=== PATIENT | female | born 1935 | race Caucasian/White ===

== ENCOUNTER 2018-08-03 02:08 | Outpatient (CLI) | payer MEDICARE, MEDICAID, SELFPAY ==
[2018-08-03 11:19] LABS: HCT 42.8 % (36.0-46.0); HGB 14.2 g/dL (12.0-15.5)
[2018-08-03 11:36] LABS: Hemoglobin A1C 6.7 % (4.5-6.2)
[2018-08-03 12:02] LABS: ALT 25 U/L (12-78); AST 20 U/L (15-37); Albumin 3.3 g/dL (3.4-5.0); Alkaline Phosphatase 105 U/L (46-116); Anion Gap 9.7 mmol/L (3-11); BUN 18 mg/dL (7-18); Bilirubin, Total 0.5 mg/dL (0.2-1.0); CO2 25.3 mmol/L (21.0-32.0); CREATININE 0.92 mg/dL (0.55-1.02); Calcium 9.2 mg/dL (8.5-10.1); Chloride 103 mmol/L (98-107); Estimated GFR 58.74 (mL/min/1.73m2); Glucose 134 mg/dL (70-100); Sodium 138 mmol/L (136-145); Total Protein 6.2 g/dL (6.4-8.2)
== END 2018-08-03 02:28 ==
PROVIDERS: PCP Family Medicine; Visit Provider Family Medicine
DX: E11.39 Type 2 diabetes mellitus with other diabetic ophthalmic complication (principal); E78.5 Hyperlipidemia, unspecified; D64.9 Anemia, unspecified
CPT/HCPCS: 36415; 80053; 83036; 85014; 85018

== ENCOUNTER 2018-08-09 12:21 | Outpatient (CLI) | payer MEDICARE, MEDICAID, SELFPAY ==
--- NOTE | 2018-08-08 11:10 | DIABASSESS_ITS ---
DESCRIPTION/ASSESSMENT: Mahsa Omalley presents for diabetes self management with the sole purpose to learn about and obtain a Continuous Glucose Monitor. She states she does have hypoglycemia a few times a week and she and her provider feel it would be a safety benefit for her to have one. She wore out Professional CGM in 2011. INTERVENTION: Reviewed our Professional CGM versus the newest Dexcom 6 that would mean she would not have to use her glucometer to check her blood sugars. Discussed benefit/cost of doing both. Mahsa feels she would like to try the latest CGM which means submitting an application to obtain CGM. She is coached through this process and the form is faxed to [employer] 08/09/18 ACTION PLAN:Mahsa will await notification of her costs for the Dexcom allowed by Medicare to determine her choice to obtain a personal CGM. She will return for instructions on its use when it is available to her. Individual DSME 0__ units billed TIME IN: 11:10 OUT: No DM group education series being offered at this time.
== END 2018-08-09 12:41 ==
PROVIDERS: PCP Family Medicine; Visit Provider Dietitian, Registered
DX: E11.9 Type 2 diabetes mellitus without complications (principal); Z79.4 Long term (current) use of insulin

== ENCOUNTER 2018-12-05 14:43 | Outpatient (REF) | payer MEDICARE, MEDICAID, SELFPAY ==
[2018-12-05 20:14] LABS: Abs Immature Grans 0.02 k/cumm (0.0-0.09); Absolute Basophil Count 0.06 k/cumm (0.0-0.2); Absolute Eosinophil Count 0.26 k/cumm (0.0-0.7); Absolute Lymphocyte Count 1.74 k/cumm (1.2-3.4); Absolute Monocyte Count 0.59 k/cumm (0.11-0.7); Absolute Neutrophil Count 4.35 k/cumm (1.2-6.7); Basophils % 0.9; Eosinophils % 3.7; Immature Grans % 0.3; Lymphocytes % 24.8; Mean Corp. HGB Concentration 32.6 g/dL (32.0-36.0); Mean Corpuscular Volume 89.2 fL (80-95); Mean Platelet Volume 11.3 fL (8.0-11.0); Monocytes % 8.4; Neutrophils % 61.9; Platelet Count 222 x1000/uL (130-400); RBC 4.82 m/cumm (4.00-5.20); RBC Distribution Width 14.5 % (11.7-14.6); White Blood Cell Count 7.02 k/cumm (4.4-10.8)
[2018-12-05 20:16] LABS: ALT 21 U/L (12-78); AST 24 U/L (15-37); Albumin 3.4 g/dL (3.4-5.0); Alkaline Phosphatase 127 U/L (46-116); Anion Gap 7.8 mmol/L (3-11); BUN 19 mg/dL (7-18); Bilirubin, Total 0.5 mg/dL (0.2-1.0); C-Reactive Protein 0.49 mg/dL (0.0-0.3); CO2 29.2 mmol/L (21.0-32.0); CREATININE 0.79 mg/dL (0.55-1.02); Calcium 9.3 mg/dL (8.5-10.1); Chloride 103 mmol/L (98-107); Glucose 209 mg/dL (70-100); NT-proBNP 159 pg/mL; Potassium 4.2 mmol/L (3.5-5.1); Sodium 140 mmol/L (136-145); Total Protein 6.8 g/dL (6.4-8.2)
[2018-12-05 21:57] LABS: ESR 15 MM/HR (0-30)
== END 2018-12-05 15:03 ==
LOC: NCHCN 14:43
PROVIDERS: PCP Family Medicine; Visit Provider Specialist/Technologist Athletic Trainer
DX: R21 Rash and other nonspecific skin eruption (principal); R60.0 Localized edema; I50.9 Heart failure, unspecified
CPT/HCPCS: 80053; 85652; 83880; 85025; 86140

== ENCOUNTER 2018-12-18 01:51 | Outpatient (CLI) | payer MEDICARE, MEDICAID, SELFPAY | END 2018-12-18 02:11 | PROVIDERS: PCP Family Medicine; Visit Provider Dietitian, Registered | DX: E11.9 Type 2 diabetes mellitus without complications (principal); Z71.3 Dietary counseling and surveillance; Z79.84 Long term (current) use of oral hypoglycemic drugs ==

== ENCOUNTER 2018-12-30 12:54 | Emergency (ER) | payer MEDICARE, MEDICAID, SELFPAY ==
[2018-12-30 13:07] VITALS: BP 166/67; PULSE 87; RESP 16; TEMP 36.5; O2SAT 96
--- NOTE | 2018-12-30 13:28 | ED.GENADUL_ITS ---
Discharge Plan Disposition Patient Disposition: HOME Condition: Stable Discharge Details Chief Complaint: RespSymp Clinical Impression: Cough Primary Care Provider: Jannie Harvey V ED Provider: Celso Guajardo Home Meds and New Rx's Prescriptions: New doxycycline hyclate 100 mg tablet 100 mg PO BID Qty: 14 RF: 0 Continued Levemir U-100 Insulin 100 unit/mL solution 14 unit SC QPM RF: 0 aspirin [Aspir-81] 81 MG tablet,delayed release (DR/EC) 81 mg PO DAILY RF: 0 valsartan [Diovan] 40 MG tablet 40 mg PO DAILY RF: 0 calcium carbonate-vitamin D3 [Caltrate with Vitamin D3] 1 EACH tablet 1 ea PO RF: 0 Centrum Silver 1 EACH tablet 1 tab PO DAILY RF: 0 ezetimibe [Zetia] 10 MG tablet 1 tab PO DAILY RF: 0 Humalog U-100 Insulin 100 UNIT/1 ML solution SQ PC Qty: 0 RF: 0 Levemir U-100 Insulin 100 UNIT/1 ML solution 14 unit SQ QPM Qty: 0 RF: 0 Discharge Instructions Instructions: Acute Cough (ED) Additional Instructions: if you feel you are becoming more ill, having more difficulty breathing or persistent vomit return to the emergency department. Follow up as scheduled tomorrow with your primary care provider's office Medical Decision Making 83 yo female who states she has had a cough and runny nose for about a week. Denies high fevers, travel, dyspnea. She is speaking in full sentences on exam in no distress with clear lungs throughout. She has clear rhinorrhea on exam. Given her lack of fever here or at home, well appearance and normal lung exam with findings of clear rhinorrhea do not feel chest xray indicated given likely has post nasal drip. Given length of time with the cough will cover for possible bronchitis. She has f/u tomorrow with pcp, return precautions given Differential Diagnosis post nasal drip, viral uri, bronchitis, pna HPI General Mode of arrival: ambulatory . Date/Time Provider Initiated Documentation: 12/30/18 13:11 . Limitations to Documentation: no limitations . Information obtained by: patient . History of Present Illness 83 year old F presents to the emergency department with the chief complaint of cough, described as moderate, Patient started experiencing this week(s) (1) and it has been constant. No relieving factors improve symptom(s), No exacerbating factors reported . Patient notes other (runny nose). Patient did receive the following treatments prior to arrival, none Related Data Home Medications Medication Instructions Recorded Confirmed aspirin [Aspir-81] 81 mg PO DAILY tab-cap 06/17/13 12/30/18 calcium carbonate-vitamin D3 1 ea PO 06/17/13 07/16/18 [Caltrate with Vitamin D3] valsartan [Diovan] 40 mg PO DAILY 06/17/13 12/30/18 Centrum Silver 1 tab PO DAILY 07/21/15 12/30/18 ezetimibe [Zetia] 1 tab PO DAILY 07/21/15 12/30/18 Humalog U-100 Insulin 0 unit SQ PC #0 vial 12/20/15 12/30/18 Levemir U-100 Insulin 14 unit SQ QPM #0 vial 12/20/15 12/30/18 insulin detemir (U- 100) 100 14 unit SC QPM ml 07/16/18 12/30/18 unit/mL subcutaneous solution doxycycline hyclate 100 mg PO BID #14 tab 12/30/18 Previous Rx's Medication Instructions Recorded Humalog U-100 Insulin 0 unit SQ PC #0 vial 12/20/15 Levemir U-100 Insulin 14 unit SQ QPM #0 vial 12/20/15 doxycycline hyclate 100 mg PO BID #14 tab 12/30/18 Allergies Allergy/AdvReac Type Severity Reaction Status Date / Time Sulfa (Sulfonamide Allergy Severe Tongue Verified 12/30/18 13:09 Antibiotics) Swells dipyridamole [From Aggrenox] AdvReac Intermediate Dizziness/Lightheade Verified 12/30/18 13:09 blurred vision metformin AdvReac Intermediate Diarrhea Verified 12/30/18 13:09 Steroids Allergy Severe Uncoded 12/30/18 13:09 General Stated Complaint: RespSymp RAFA: 3 Review of Systems Review of Systems All systems reviewed & are unremarkable except as noted in HPI and below Constitutional Denies chills, Denies fever(s) and Denies weakness Cardiovascular Denies chest pain and Denies dyspnea Respiratory Denies dyspnea Gastrointestinal Denies abdominal pain, Denies nausea and Denies vomiting Neurologic Denies weakness PFSH Medical History Diabetes mellitus Migraine Surgical History Bladder Surgery Laminectomy Repair of umbilical hernia Family History Other Diabetes Heart disease Hyperlipidemia Personal history of malignant neoplasm Social History Smoking/Tobacco Use Status: Never Alcohol Intake: current Alcohol Intake frequency: holidays/special occasions only Drug use: Never Substance use type: does not use Seatbelt use: always Female Reproductive History Menstrual Menopause type: natural History History 5 Para 5 Hx # Term Pregnancies 5 Multiple births Hx # Pregnancies Ectopic pregnancies AB induced Hx Number of Living Children AB spontaneous Exam Const General: no acute distress Orientation: alert HENMT Head: normal to inspection Ears: external ears normal General nose exam: external nose normal Mouth: moist mucous membranes Eyes General: appearance normal, both eyes and all related structures Neck Neck: normal visual inspection Resp Effort & Inspection: normal respiratory effort and able to speak in complete sentences Cardio Rate: regular rate Skin General skin exam: no rashes or lesions noted Neuro General: alert and oriented x3 Extrem General: normal to inspection Psych Mental Status: mental status grossly normal Course Vital Signs Temperature 36.5 C 12/30/18 13:07 Pulse 87 12/30/18 13:07 Respiratory Rate 16 12/30/18 13:07 Blood Pressure 166/67 H 12/30/18 13:07 Pulse Oximetry 96 12/30/18 13:07 Temperature 36.5 C 12/30/18 13:07 Temperature Source Skin 12/30/18 13:07 Pulse 87 12/30/18 13:07 Respiratory Rate 16 12/30/18 13:07 Respiratory Effort Non-Labored 12/30/18 13:07 Blood Pressure 166/67 H 12/30/18 13:07 Blood Pressure Position Sitting 12/30/18 13:07 Pulse Oximetry 96 12/30/18 13:07 Oxygen Delivery Method Room Air 12/30/18 13:07 Oxygen Flow Rate 0 12/30/18 13:07 Pain Level 5 12/30/18 13:07
== END 2018-12-30 13:35 | disposition home or self-care (01) ==
PROVIDERS: Emergency Provider Emergency Medicine; PCP Family Medicine
DX: R05 Cough (principal); E11.9 Type 2 diabetes mellitus without complications
CPT/HCPCS: 99283

== ENCOUNTER 2019-01-08 00:45 | Outpatient (CLI) | payer MEDICARE, MEDICAID, SELFPAY ==
--- NOTE | 2019-01-08 10:20 | MERGE_ITS ---
*[facility]* *[facility]* [address] [place] [address] Date of study: 01/08/2019 Transthoracic Echocardiography M-mode, complete 2D, complete spectral Doppler, and color Doppler *STUDY CONCLUSIONS* Summary: 1. Left ventricle: The cavity size was normal. Wall thickness was normal. Systolic function was normal. The estimated ejection fraction was 55-60%. Wall motion was normal; there were no regional wall motion abnormalities. Findings consistent with diastolic dysfunction. Doppler parameters are consistent with high ventricular filling pressure. Average of medial and lateral annulus E velocity: 0.049m/sec. Ratio of mitral valve peak E velocity to average of medial and lateral annulus peak E velocity: 15. 2. Right ventricle: The cavity size was normal. Wall thickness was normal. Systolic function was normal. *PATIENT PRESENTATION* Height: 160cm ((63in) ) S/D Pressure: 152 / 77 Weight: 78.9kg ((173.6lb) ) BSA: 1.9m^2 Test start time: 10:30 AM. Test stop time: 11:30 AM. ORDERING Jannie Harvey V REFERRING Jannie Harvey V PERFORMING Unknown PERFORMING [facility] METER TESTER PRIMARY RT Jimmy Castillo)[email or web address])SALLY *PROCEDURE DATA* Procedure information: The patient was identified by two identifiers. This study was interpreted by [facility]. Pertinent images and digital data are archived for permanent storage and are available for subsequent review. No prior study was available for comparison. Study status: Routine. Transthoracic echocardiography. M-mode, complete 2D, complete spectral Doppler, and color Doppler. A Transthoracic Echocardiogram was performed. Scanning was performed from the parasternal, apical, subcostal, and suprasternal notch acoustic windows. Images were obtained using an [id number] cardiac ultrasound machine. Image quality was adequate. Study completion: The patient tolerated the procedure well. History: PMH: New onset bilateral leg edema r60.0 *CARDIAC ANATOMY* Left ventricle: The cavity size was normal. Wall thickness was normal. Systolic function was normal. The estimated ejection fraction was 55-60%. Wall motion was normal; there were no regional wall motion abnormalities. Findings consistent with diastolic dysfunction. Doppler parameters are consistent with high ventricular filling pressure. Aortic valve: Trileaflet; normal thickness, mildly calcified leaflets. Mobility was not restricted. Doppler: Transvalvular velocity was within the normal range. There was no stenosis. There was no significant regurgitation. VTI ratio of LVOT to aortic valve: 0.74. Valve area (VTI): 2.8cm^2. Indexed valve area (VTI): 1.5cm^2/m^2. Peak velocity ratio of LVOT to aortic valve: 0.7. Valve area (Vmax): 2.6cm^2. Indexed valve area (Vmax): 1.4cm^2/m^2. Mean velocity ratio of LVOT to aortic valve: 0.71. Valve area (Vmean): 2.7cm^2. Indexed valve area (Vmean): 1.4cm^2/m^2. Mean gradient (S): 4.5mm Hg. Peak gradient (S): 8.4mm Hg. Aorta: Aortic root: The aortic root was normal in size. Ascending aorta: The ascending aorta was normal in size. Mitral valve: Structurally normal valve. Mobility was not restricted. Doppler: Transvalvular velocity was within the normal range. There was no evidence for stenosis. There was no significant regurgitation. Valve area by pressure half-time: 2.7cm^2. Indexed valve area by pressure half-time: 1.4cm^2/m^2. Peak gradient (D): 2mm Hg. Left atrium: The atrium was normal in size. Right ventricle: The cavity size was normal. Wall thickness was normal. Systolic function was normal. Pulmonic valve: Structurally normal valve. Doppler: Transvalvular velocity was within the normal range. There was no evidence for stenosis. There was trivial regurgitation. Peak gradient (S): 3.2mm Hg. Tricuspid valve: Structurally normal valve. Doppler: Transvalvular velocity was within the normal range. There was no evidence for stenosis. There was no significant regurgitation. Pulmonary artery: Systolic pressure could not be accurately estimated. Right atrium: The atrium was normal in size. Pericardium: There was no pericardial effusion. Systemic veins: Inferior vena cava: Well visualized. The vessel was patent and normal in size. The respirophasic diameter changes were in the normal range (greater than or equal to 50%). Baseline ECG: Normal sinus rhythm. Measurements Left ventricle Value Reference LV ID, ED, PLAX 4.5 cm 3.5 - 6.0 LV ID, ES, PLAX 3.0 cm 2.1 - 4.0 LV PW thickness, ED, PLAX 0.9 cm LV end-diastolic volume, 1-p A2C 42 ml LV ejection fraction, 1-p A2C 55 % LV end-diastolic volume, 1-p A4C 61 ml LV ejection fraction, 1-p A4C 63 % LV e', lateral 0.048 m/sec LV E/e', lateral 15 LV e', medial 0.049 m/sec LV E/e', medial 14 LV e', average 0.049 m/sec LV E/e', average 15 Ventricular septum Value Reference IVS thickness, ED, PLAX 1.0 cm LVOT Value Reference LVOT ID, A-P 2.2 cm LVOT area 3.8 cm^2 LVOT peak velocity, S 1.01 m/sec LVOT mean velocity, S 0.72 m/sec LVOT VTI, S 22.1 cm LVOT peak gradient, S 4.1 mm Hg LVOT mean gradient, S 2.3 mm Hg Stroke volume (SV), LVOT DP 84 ml Stroke index (SV/bsa), LVOT DP 44 ml/m^2 Aortic valve Value Reference Aortic valve peak velocity, S 1.4 m/sec Aortic valve mean velocity, S 1 m/sec Aortic valve VTI, S 30.0 cm Aortic mean gradient, S 4.5 mm Hg Aortic peak gradient, S 8.4 mm Hg VTI ratio, LVOT/AV 0.74 Aortic valve area, VTI 2.8 cm^2 Velocity ratio, peak, LVOT/AV 0.7 Aortic valve area, peak velocity 2.6 cm^2 Velocity ratio, mean, LVOT/AV 0.71 Aortic valve area, mean velocity 2.7 cm^2 Aortic valve area/bsa, mean velocity 1.4 cm^2/m^2 Aorta Value Reference Aortic root ID, ED 3.2 cm Ascending aorta ID, A-P, S 3.2 cm RVOT Value Reference RVOT VTI, S 16.1 cm Left atrium Value Reference LA ID, A-P, ES 2.7 cm LA ID/bsa, A-P 1.4 cm/m^2 <=2.2 LA area, ES, A4C 16.1 cm^2 8.8 - 23.4 LA area, ES, A2C 16 cm^2 LA volume/bsa, ES, 1-p A4C 22 ml/m^2 LA volume, ES, 2-p 40 ml LA volume/bsa, ES, 2-p 21 ml/m^2 LA/aortic root ratio 0.84 Mitral valve Value Reference Mitral E-wave peak velocity 0.72 m/sec Mitral A-wave peak velocity 1.17 m/sec Mitral deceleration time (H) 278 ms 150 - 230 Mitral pressure half-time 81 ms Mitral peak gradient, D 2 mm Hg Mitral E/A ratio, peak 0.61 Mitral valve area, PHT, DP 2.7 cm^2 Pulmonary veins Value Reference Pulmonary vein peak velocity, S 0.58 m/sec Pulmonary vein peak velocity, D 0.49 m/sec Pulmonary vein velocity ratio, peak, 1.18 S/D Pulmonary vein A-wave reversal peak 0.33 m/sec velocity Tricuspid valve Value Reference Tricuspid regurg peak velocity 2.5 m/sec Tricuspid peak RV-RA gradient 24.9 mm Hg Right atrium Value Reference RA area, ES, A4C 17.8 cm^2 8.3 - 19.5 Pulmonic valve Value Reference Pulmonic peak gradient, S 3.2 mm Hg Legend: (L) and (H) claus values outside specified reference range. I have personally reviewed the images and have reviewed and edited the reported findings. Electronically signed by Elefgo Chino 01/08/2019 17:19
== END 2019-01-08 01:05 ==
PROVIDERS: PCP Family Medicine; Visit Provider Family Medicine
DX: R60.0 Localized edema (principal); I51.89 Other ill-defined heart diseases
CPT/HCPCS: 93306

== ENCOUNTER 2019-02-07 11:36 | Outpatient (CLI) | payer MEDICARE, MEDICAID, SELFPAY ==
[2019-02-07 13:26] LABS: Anion Gap 7.9 mmol/L (3-11); BUN 20 mg/dL (7-18); CO2 28.1 mmol/L (21.0-32.0); Calcium 9.2 mg/dL (8.5-10.1); Chloride 102 mmol/L (98-107); Cholesterol 239 mg/dL (50-200); Glucose 224 mg/dL (70-100); HDL Cholesterol 85 mg/dL (40-60); LDL CHOLESTEROL 139 mg/dL (<100); Potassium 4.2 mmol/L (3.5-5.1); Sodium 138 mmol/L (136-145); Triglyceride 85 mg/dL (30-150)
== END 2019-02-07 11:56 ==
PROVIDERS: PCP Family Medicine; Visit Provider Family Medicine
DX: E11.39 Type 2 diabetes mellitus with other diabetic ophthalmic complication (principal); R60.0 Localized edema; E78.5 Hyperlipidemia, unspecified
CPT/HCPCS: 36415; 80048; 80061; 83721; 83036

== ENCOUNTER 2019-03-13 01:03 | Outpatient (CLI) | payer MEDICARE, MEDICAID, SELFPAY ==
--- NOTE | 2019-03-13 11:00 | DIABASSESS_ITS ---
DESCRIPTION/ASSESSMENT: Mahsa Omalley presents for diabetes self management to look at her blood sugars and to place her next CGM sensor. Mahsa carefully counts her carbohydrate and uses 1 unit for 15 grams to dose for meals iwth a 1 unit corrects 50mg/dl addition starting at 200. She had been having hypoglycemia and her correction scale was moved to 200. INTERVENTION: New CGM sensor is placed without difficulty. Download CGM for past 4 days. She experiences hyperglycemia above 200 every day with some during the day and some in the evening. Her average blood sugar was 201mg/dl. There is no clear pattern. Overnight is more steady although sometimes near or over 200mg/dl, yet was at 80mg/dl twice in one night. Mahsa is not interested in intensifying her insulin dosing except to change the start of insulin correction to 180mg/dl rather than 200mg/dl. ACTION PLAN: in 2 weeks will replace sensor and transmitter She will begin insulin correction at 180mg/dl. Individual DSME/T __0__ units billed TIME IN: 1100 OUT: 1120 face to face No DM group education series being offered at this time.
== END 2019-03-13 01:23 ==
PROVIDERS: PCP Family Medicine; Visit Provider Dietitian, Registered
DX: E11.9 Type 2 diabetes mellitus without complications (principal); Z79.4 Long term (current) use of insulin; Z71.3 Dietary counseling and surveillance

== ENCOUNTER 2019-03-16 10:47 | Emergency (ER) | payer MEDICARE, MEDICAID, SELFPAY ==
[2019-03-16 10:52] VITALS: BP 145/58; PULSE 94; RESP 14; TEMP 36.3; O2SAT 96
--- NOTE | 2019-03-16 11:33 | W.ED.GENAD ---
Discharge Plan Disposition Patient Disposition: HOME Condition: Improving Discharge Details Chief Complaint: EarProblem Clinical Impression: Bilateral impacted cerumen Primary Care Provider: Jannie Harvey V ED Provider: Bren Chowdhury Home Meds and New Rx's Prescriptions: Continued Levemir U-100 Insulin 100 unit/mL solution 14 unit SC QPM RF: 0 aspirin [Aspir-81] 81 MG tablet,delayed release (DR/EC) 81 mg PO DAILY RF: 0 valsartan [Diovan] 40 MG tablet 40 mg PO DAILY RF: 0 calcium carbonate-vitamin D3 [Caltrate with Vitamin D3] 1 EACH tablet 1 ea PO RF: 0 Centrum Silver 1 EACH tablet 1 tab PO DAILY RF: 0 ezetimibe [Zetia] 10 MG tablet 1 tab PO DAILY RF: 0 Humalog U-100 Insulin 100 UNIT/1 ML solution SQ PC Qty: 0 RF: 0 Levemir U-100 Insulin 100 UNIT/1 ML solution 14 unit SQ QPM Qty: 0 RF: 0 Discharge Instructions Instructions: Cerumen Impaction (ED) Additional Instructions: Continue to use hydrogen soaked cotton balls placed within the ears 1-2 times daily for approximately 20 minutes at a time to help continue soften the earwax. You can also use [id number] Debrox ear drops to help soften the ear wax. Follow-up with your scheduled appointment with Dr. Luke on for reevaluation. Return to the emergency department if you develop any worsening or concerning symptoms. Discharge Data Discharge Physician: Bren Chowdhury Medical Decision Making 83-year-old female presents with decreased hearing both ears for the past 2 days. Has a history of cerumen impaction. Bilateral cerumen impaction noted. No other external ear abnormalities noted. Patient appears nontoxic. Nurse flushed ears bilaterally and was able to remove a significant amount of wax. Patient states she feels better and hearing is improved. Still admits to some decreased hearing bilaterally. There is noted to be white material within ears bilaterally which may be dried skin or remaining wax or scar tissue. She is instructed to continue the hydrogen peroxide soaked cotton balls, or Debrox drops. She is instructed to keep her appointment with Dr. Luke for for reevaluation and to return here anytime if worse. HPI General Mode of arrival: ambulatory. Date/Time Provider Initiated Documentation: 03/16/19 11:01. Limitations to Documentation: no limitations. Information obtained by: patient and family. HPI Narrative: Patient is a an 83-year-old female who presents with bilateral cerumen impaction for the past few days. Patient's friend gives most of the history as patient is having difficulty hearing due to her cerumen impaction. Friend states that patient has issues with cerumen impaction frequently and has an appointment scheduled with Dr. Luke this but was unable to wait until then due to the decreased hearing and ringing in her ears. Denies any fever or ear pain. Related Data Home Medications Medication Instructions Recorded Confirmed aspirin [Aspir-81] 81 mg PO DAILY tab-cap 06/17/13 03/16/19 calcium carbonate-vitamin D3 1 ea PO 06/17/13 07/16/18 [Caltrate with Vitamin D3] valsartan [Diovan] 40 mg PO DAILY 06/17/13 03/16/19 Centrum Silver 1 tab PO DAILY 07/21/15 03/16/19 ezetimibe [Zetia] 1 tab PO DAILY 07/21/15 03/16/19 Humalog U-100 Insulin 0 unit SQ PC #0 vial 12/20/15 03/16/19 Levemir U-100 Insulin 14 unit SQ QPM #0 vial 12/20/15 03/16/19 insulin detemir (U- 100) 100 14 unit SC QPM ml 07/16/18 03/16/19 unit/mL subcutaneous solution Previous Rx's Medication Instructions Recorded Humalog U-100 Insulin 0 unit SQ PC #0 vial 12/20/15 Levemir U-100 Insulin 14 unit SQ QPM #0 vial 12/20/15 Allergies Allergy/AdvReac Type Severity Reaction Status Date / Time Sulfa (Sulfonamide Allergy Severe Tongue Verified 03/16/19 10:57 Antibiotics) Swells dipyridamole [From Aggrenox] AdvReac Intermediate Dizziness/Lightheade Verified 03/16/19 10:57 blurred vision metformin AdvReac Intermediate Diarrhea Verified 03/16/19 10:57 Steroids Allergy Severe Uncoded 03/16/19 10:57 General Stated Complaint: EarProblem RAFA: 4 Review of Systems Review of Systems All systems reviewed & are unremarkable except as noted in HPI and below Constitutional Reports as per HPI, Denies chills and Denies fever(s) Eyes Denies blurry vision ENT Denies dizziness, Denies sore throat and Denies throat swelling Cardiovascular Denies chest pain and Denies dyspnea Respiratory Denies cough and Denies dyspnea Gastrointestinal Denies abdominal pain, Denies diarrhea and Denies vomiting Genitourinary Denies hematuria and Denies dysuria Musculoskeletal Denies back pain and Denies numbness Integumentary/Breasts Denies lesions and Denies rash Neurologic Denies dizziness, Denies focal weakness and Denies numbness Allergic/Immunologic Denies throat swelling PFSH Medical History Diabetes mellitus Migraine Surgical History Bladder Surgery Laminectomy Repair of umbilical hernia Family History Other Diabetes Heart disease Hyperlipidemia Personal history of malignant neoplasm Social History Smoking/Tobacco Use Status: Never Alcohol Intake: current Alcohol Intake frequency: holidays/special occasions only Drug use: Never Substance use type: does not use Seatbelt use: always Do you feel safe at home: Yes Do you feel safe in your relationship?: Yes Female Reproductive History Menstrual Menopause type: natural History History 5 Para 5 Hx # Term Pregnancies 5 Multiple births Hx # Pregnancies Ectopic pregnancies AB induced Hx Number of Living Children AB spontaneous Exam Const General: cooperative, healthy appearing and no acute distress HENMT Head: normal to inspection Ears: hearing grossly impaired bilaterally and TM abnormal obstructed by cerumen bilaterally General nose exam: external nose normal Mouth: oral mucosae normal Eyes General: appearance normal, both eyes and all related structures Neck Neck: normal visual inspection Resp Effort & Inspection: normal respiratory effort and able to speak in complete sentences Cardio Rate: regular rate Skin General skin exam: no rashes or lesions noted Neuro General: alert, awake and oriented x3 Motor: muscle tone normal throughout Extrem General: normal to inspection and full ROM Psych Appearance: grossly normal Affect: normal affect Course Vital Signs Temperature 97.3 F L 03/16/19 10:52 Pulse 94 H 03/16/19 10:52 Respiratory Rate 14 03/16/19 10:52 Blood Pressure 145/58 H 03/16/19 10:52 Pulse Oximetry 96 03/16/19 10:52 Temperature 97.3 F L 03/16/19 10:52 Temperature Source Temporal Artery Scan 03/16/19 10:52 Pulse 94 H 03/16/19 10:52 Respiratory Rate 14 03/16/19 10:52 Respiratory Effort Non-Labored 03/16/19 10:57 Blood Pressure 145/58 H 03/16/19 10:52 Blood Pressure Position Sitting 03/16/19 10:52 Pulse Oximetry 96 03/16/19 10:52 Oxygen Delivery Method Room Air 03/16/19 10:52 Oxygen Flow Rate 0 03/16/19 10:52 Pain Level 0 03/16/19 10:56
--- NOTE | 2019-03-16 11:36 | ED.GENADUL_ITS ---
Discharge Plan Disposition Patient Disposition: HOME Condition: Improving Discharge Details Chief Complaint: EarProblem Clinical Impression: Bilateral impacted cerumen Primary Care Provider: Jannie Harvey V ED Provider: Bren Chowdhury Home Meds and New Rx's Prescriptions: Continued Levemir U-100 Insulin 100 unit/mL solution 14 unit SC QPM RF: 0 aspirin [Aspir-81] 81 MG tablet,delayed release (DR/EC) 81 mg PO DAILY RF: 0 valsartan [Diovan] 40 MG tablet 40 mg PO DAILY RF: 0 calcium carbonate-vitamin D3 [Caltrate with Vitamin D3] 1 EACH tablet 1 ea PO RF: 0 Centrum Silver 1 EACH tablet 1 tab PO DAILY RF: 0 ezetimibe [Zetia] 10 MG tablet 1 tab PO DAILY RF: 0 Humalog U-100 Insulin 100 UNIT/1 ML solution SQ PC Qty: 0 RF: 0 Levemir U-100 Insulin 100 UNIT/1 ML solution 14 unit SQ QPM Qty: 0 RF: 0 Discharge Instructions Instructions: Cerumen Impaction (ED) Additional Instructions: Continue to use hydrogen soaked cotton balls placed within the ears 1-2 times daily for approximately 20 minutes at a time to help continue soften the earwax. You can also use [id number] Debrox ear drops to help soften the ear wax. Follow-up with your scheduled appointment with Dr. Luke on for reevaluation. Return to the emergency department if you develop any worsening or concerning symptoms. Discharge Data Discharge Physician: Bren Chowdhury Medical Decision Making 83-year-old female presents with decreased hearing both ears for the past 2 days. Has a history of cerumen impaction. Bilateral cerumen impaction noted. No other external ear abnormalities noted. Patient appears nontoxic. Nurse flushed ears bilaterally and was able to remove a significant amount of wax. Patient states she feels better and hearing is improved. Still admits to some decreased hearing bilaterally. There is noted to be white material within ears bilaterally which may be dried skin or remaining wax or scar tissue. She is instructed to continue the hydrogen peroxide soaked cotton balls, or Debrox drops. She is instructed to keep her appointment with Dr. Luke for for reevaluation and to return here anytime if worse. HPI General Mode of arrival: ambulatory . Date/Time Provider Initiated Documentation: 03/16/19 11:01 . Limitations to Documentation: no limitations . Information obtained by: patient and family . HPI Narrative: Patient is a an 83 -year-old female who presents with bilateral cerumen impaction for the past few days. Patient's friend gives most of the history as patient is having difficulty hearing due to her cerumen impaction. Friend states that patient has issues with cerumen impaction frequently and has an appointment scheduled with Dr. Luke this but was unable to wait until then due to the decreased hearing and ringing in her ears. Denies any fever or ear pain. Related Data Home Medications Medication Instructions Recorded Confirmed aspirin [Aspir-81] 81 mg PO DAILY tab-cap 06/17/13 03/16/19 calcium carbonate-vitamin D3 1 ea PO 06/17/13 07/16/18 [Caltrate with Vitamin D3] valsartan [Diovan] 40 mg PO DAILY 06/17/13 03/16/19 Centrum Silver 1 tab PO DAILY 07/21/15 03/16/19 ezetimibe [Zetia] 1 tab PO DAILY 07/21/15 03/16/19 Humalog U-100 Insulin 0 unit SQ PC #0 vial 12/20/15 03/16/19 Levemir U-100 Insulin 14 unit SQ QPM #0 vial 12/20/15 03/16/19 insulin detemir (U- 100) 100 14 unit SC QPM ml 07/16/18 03/16/19 unit/mL subcutaneous solution Previous Rx's Medication Instructions Recorded Humalog U-100 Insulin 0 unit SQ PC #0 vial 12/20/15 Levemir U-100 Insulin 14 unit SQ QPM #0 vial 12/20/15 Allergies Allergy/AdvReac Type Severity Reaction Status Date / Time Sulfa (Sulfonamide Allergy Severe Tongue Verified 03/16/19 10:57 Antibiotics) Swells dipyridamole [From Aggrenox] AdvReac Intermediate Dizziness/Lightheade Verified 03/16/19 10:57 blurred vision metformin AdvReac Intermediate Diarrhea Verified 03/16/19 10:57 Steroids Allergy Severe Uncoded 03/16/19 10:57 General Stated Complaint: EarProblem RAFA: 4 Review of Systems Review of Systems All systems reviewed & are unremarkable except as noted in HPI and below Constitutional Reports as per HPI, Denies chills and Denies fever(s) Eyes Denies blurry vision ENT Denies dizziness, Denies sore throat and Denies throat swelling Cardiovascular Denies chest pain and Denies dyspnea Respiratory Denies cough and Denies dyspnea Gastrointestinal Denies abdominal pain, Denies diarrhea and Denies vomiting Genitourinary Denies hematuria and Denies dysuria Musculoskeletal Denies back pain and Denies numbness Integumentary/Breasts Denies lesions and Denies rash Neurologic Denies dizziness, Denies focal weakness and Denies numbness Allergic/Immunologic Denies throat swelling PFSH Medical History Diabetes mellitus Migraine Surgical History Bladder Surgery Laminectomy Repair of umbilical hernia Family History Other Diabetes Heart disease Hyperlipidemia Personal history of malignant neoplasm Social History Smoking/Tobacco Use Status: Never Alcohol Intake: current Alcohol Intake frequency: holidays/special occasions only Drug use: Never Substance use type: does not use Seatbelt use: always Do you feel safe at home: Yes Do you feel safe in your relationship?: Yes Female Reproductive History Menstrual Menopause type: natural History History 5 Para 5 Hx # Term Pregnancies 5 Multiple births Hx # Pregnancies Ectopic pregnancies AB induced Hx Number of Living Children AB spontaneous Exam Const General: cooperative, healthy appearing and no acute distress HENMT Head: normal to inspection Ears: hearing grossly impaired bilaterally and TM abnormal obstructed by cerumen bilaterally General nose exam: external nose normal Mouth: oral mucosae normal Eyes General: appearance normal, both eyes and all related structures Neck Neck: normal visual inspection Resp Effort & Inspection: normal respiratory effort and able to speak in complete sentences Cardio Rate: regular rate Skin General skin exam: no rashes or lesions noted Neuro General: alert, awake and oriented x3 Motor: muscle tone normal throughout Extrem General: normal to inspection and full ROM Psych Appearance: grossly normal Affect: normal affect Course Vital Signs Temperature 97.3 F L 03/16/19 10:52 Pulse 94 H 03/16/19 10:52 Respiratory Rate 14 03/16/19 10:52 Blood Pressure 145/58 H 03/16/19 10:52 Pulse Oximetry 96 03/16/19 10:52 Temperature 97.3 F L 03/16/19 10:52 Temperature Source Temporal Artery Scan 03/16/19 10:52 Pulse 94 H 03/16/19 10:52 Respiratory Rate 14 03/16/19 10:52 Respiratory Effort Non-Labored 03/16/19 10:57 Blood Pressure 145/58 H 03/16/19 10:52 Blood Pressure Position Sitting 03/16/19 10:52 Pulse Oximetry 96 03/16/19 10:52 Oxygen Delivery Method Room Air 03/16/19 10:52 Oxygen Flow Rate 0 03/16/19 10:52 Pain Level 0 03/16/19 10:56
== END 2019-03-16 12:22 | disposition home or self-care (01) ==
PROVIDERS: Emergency Provider Physician Assistant; PCP Family Medicine
DX: H61.23 Impacted cerumen, bilateral (principal); H91.93 Unspecified hearing loss, bilateral; E11.9 Type 2 diabetes mellitus without complications; Z79.4 Long term (current) use of insulin
CPT/HCPCS: 69209; 99282

== ENCOUNTER 2019-05-29 01:43 | Outpatient (CLI) | payer MEDICARE, MEDICAID, SELFPAY ==
[2019-05-29 13:36] LABS: Hemoglobin A1C 8.2 % (4.5-6.2)
== END 2019-05-29 02:03 ==
PROVIDERS: Visit Provider Family Medicine
DX: E11.39 Type 2 diabetes mellitus with other diabetic ophthalmic complication (principal)
CPT/HCPCS: 36415; 83036

== ENCOUNTER 2019-06-30 11:03 | Emergency (ER) | payer MEDICARE, MEDICAID, SELFPAY ==
[2019-06-30 11:11] VITALS: BP 179/73; PULSE 89; RESP 16; TEMP 36.4; O2SAT 98
--- NOTE | 2019-06-30 11:42 | ED.GENADUL_ITS ---
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 Primary Care Provider: Jannie Harvey V ED Provider: Shana Li Home Meds and New Rx's Prescriptions: Continued Levemir U-100 Insulin 100 unit/mL solution 14 unit SC QPM RF: 0 aspirin [Aspir-81] 81 MG tablet,delayed release (DR/EC) 81 mg PO DAILY RF: 0 valsartan [Diovan] 40 MG tablet 40 mg PO DAILY RF: 0 calcium carbonate-vitamin D3 [Caltrate with Vitamin D3] 1 EACH tablet 1 ea PO RF: 0 Centrum Silver 1 EACH tablet 1 tab PO DAILY RF: 0 ezetimibe [Zetia] 10 MG tablet 1 tab PO DAILY RF: 0 insulin lispro [Humalog U-100 Insulin] 100 UNIT/1 ML solution 0 unit SQ PC Qty: 0 RF: 0 Levemir U-100 Insulin 100 UNIT/1 ML solution 14 unit SQ QPM Qty: 0 RF: 0 Discharge Instructions Additional Instructions: Follow Dr. Luke's recommendations regarding your ear care. Please plan to see them tomorrow at 8 AM in [place]. If you develop fever/chills, ear pain or the new/worsening symptoms please seek care urgently once again. Referrals: Robin Luke MD [ [facility] STAFF PHYSICIAN] - Discharge Data Discharge Date/Time-TO BE ENTERED AT DEPARTURE: 06/30/19 13:35 Medical Decision Making Patient 83-year-old female presenting today with chief complaint of diminished bilateral hearing. She is followed routinely by ENT. 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 Patient was last evaluated by ENT on 05/30/2019. At that point, the keratosis obturans was flaring up for the patient. Dr. Luke reported that the Cheratussin is not improving after a course of Cortisporin and was affecting her ability to use her hearing aid. He advised using neomycin polymyxin HC solution drops bilaterally every other night for the following 30 days. She is due to see Dr. Luke soon. He advised that if this is unsuccessful he would use a trial of gentian Charisse. He denies it is holding off on this because it would stain her hearing aids. On exam, patient is clearly having difficulty hearing. I meeting the right on the white board to communicate with her. She has complete occlusion of bilateral external canals. She does have her hearing aids and these do seem to be working. No erythema, discharge. She is nontoxic-appearing, remaining exam is benign. Consulted with Dr. Luke who advised superfician suctioning to the ears. Patient to go to the office tomorrow morning at 0[address]. Follow Dr[address] Luke's recommendations and used a 7 Tristanian Marcano tip dissection bilateral ears. I was unable to remove all of the debris the patient replaced her hearing aids and hearing is much improved. She feels much more comfortable. We will plan to follow-up with Dr. Luke as advised above tomorrow morning. Patient I discussed return precautions. All her questions and concerns were addressed and she is feeling much improved. HPI General Mode of arrival: ambulatory . Date/Time Provider Initiated Documentation: 06/30/19 11:42 . Limitations to Documentation: physical limitation (bilateral ears plugged, patient only able to read) . Information obtained by: patient, family and RN notes reviewed . History of Present Illness 83 year old F presents to the emergency department with the chief complaint of ears plugged, diminished hearing, described as similar to prior episodes, and is localized to the face. Patient started experiencing this hour(s) and it has been constant. No relieving factors improve symptom(s), No exacerbating factors reported . Patient notes no other symptoms.. Patient did receive the following treatments prior to arrival, none Related Data Home Medications Medication Instructions Recorded Confirmed aspirin [Aspir-81] 81 mg PO DAILY tab-cap 06/17/13 06/30/19 calcium carbonate-vitamin D3 1 ea PO 06/17/13 07/16/18 [Caltrate with Vitamin D3] valsartan [Diovan] 40 mg PO DAILY 06/17/13 06/30/19 Centrum Silver 1 tab PO DAILY 07/21/15 06/30/19 ezetimibe [Zetia] 1 tab PO DAILY 07/21/15 06/30/19 Levemir U-100 Insulin 14 unit SQ QPM #0 vial 12/20/15 06/30/19 insulin lispro [Humalog U-100 0 unit SQ PC #0 vial 12/20/15 06/30/19 Insulin] insulin detemir U-100 100 unit/mL 14 unit SC QPM ml 07/16/18 06/30/19 subcutaneous solution Previous Rx's Medication Instructions Recorded Levemir U-100 Insulin 14 unit SQ QPM #0 vial 12/20/15 insulin lispro [Humalog U-100 0 unit SQ PC #0 vial 12/20/15 Insulin] Allergies Allergy/AdvReac Type Severity Reaction Status Date / Time Sulfa (Sulfonamide Allergy Severe Tongue Verified 06/30/19 11:14 Antibiotics) Swells dipyridamole [From Aggrenox] AdvReac Intermediate Dizziness/Lightheade Verified 06/30/19 11:14 blurred vision metformin AdvReac Intermediate Diarrhea Verified 06/30/19 11:14 Steroids Allergy Severe Uncoded 06/30/19 11:14 General Stated Complaint: EarProblem RAFA: 4 Review of Systems Constitutional Constitutional: Reports as per HPI, Denies chills, Denies fever(s) and Denies headache(s) Eyes Eyes: Reports as per HPI, Denies eye discharge and Denies irritation ENT Ears, Nose, Mouth, and Throat: Reports as per HPI, Reports abnormal hearing, Denies dental pain, Denies ear discharge, Denies otalgia and Denies headache(s) Cardiovascular Cardiovascular: Reports as per HPI, Denies chest pain and Denies dyspnea Respiratory Respiratory: Reports as per HPI, Denies cough and Denies dyspnea Gastrointestinal Gastrointestinal: Reports as per HPI, Denies abdominal pain, Denies change in bowel habits, Denies nausea and Denies vomiting Integumentary/Breasts Skin/Breast: Reports as per HPI and Denies rash Neurologic Neurologic: Reports as per HPI, Reports abnormal hearing and Denies headache(s) [facility] Medical History Diabetes mellitus Migraine Surgical History Bladder Surgery Repair Laminectomy Repair of umbilical hernia Social History Smoking/Tobacco Use Status: Never Alcohol Intake: current Alcohol Intake frequency: holidays/special occasions only Drug use: Never Substance use type: does not use Seatbelt use: always Do you feel safe at home: Yes Do you feel safe in your relationship?: Yes Female Reproductive History Menstrual Menopause type: natural History History 5 Para 5 Hx # Term Pregnancies 5 Multiple births Hx # Pregnancies Ectopic pregnancies AB induced Hx Number of Living Children AB spontaneous Exam Const General: cooperative, healthy appearing, comfortable, no acute distress, well developed and well groomed Nutritional Appearance: average body habitus and well nourished Orientation: alert and awake [facility] Head: normal to inspection, normocephalic and atraumatic Ears: hearing grossly normal bilaterally, mastoids normal, no periauricular adenopathy and unable to visualize TM (Thick, white, rounded mass in bilateral external ears completely occluding ) bilaterally General nose exam: external nose normal and nares normal Face and sinus: normal facial exam and face symmetric Mouth: oral mucosae normal, lip normal, tongue normal, oropharynx normal and moist mucous membranes Teeth and gingiva: dentition normal Throat: posterior oropharynx normal, tonsils normal and uvula midline Eyes General: appearance normal, both eyes and all related structures Neck Neck: normal visual inspection, full ROM, no lymphadenopathy and no meningeal signs Resp Effort & Inspection: normal respiratory effort, able to speak in complete sentences and no respiratory distress Auscultation: clear to auscultation bilaterally, no rales, no rhonchi and no wheezes Cardio Rate: regular rate Rhythm: regular rhythm Heart Sounds: S1 normal and S2 normal Skin General skin exam: no rashes or lesions noted Neuro General: alert and awake Cognition: normal cognition Speech: speech normal Gait: normal gait Psych Appearance: grossly normal and well kempt Mental Status: mental status grossly normal Speech and Movement: speech and movement normal Course Vital Signs Vital signs: Vital Signs Temperature 36.4 C L 06/30/19 11:11 Pulse 89 06/30/19 11:11 Respiratory Rate 16 06/30/19 11:11 Blood Pressure 179/73 H 06/30/19 11:11 Pulse Oximetry 98 06/30/19 11:11 Temperature 36.4 C L 06/30/19 11:11 Temperature Source Skin 06/30/19 11:11 Pulse 89 06/30/19 11:11 Respiratory Rate 16 06/30/19 11:11 Respiratory Effort Non-Labored 06/30/19 11:11 Blood Pressure 179/73 H 06/30/19 11:11 Blood Pressure Position Sitting 06/30/19 11:11 Pulse Oximetry 98 06/30/19 11:11 Oxygen Delivery Method Room Air 06/30/19 11:11 Oxygen Flow Rate 0 06/30/19 11:11 Pain Level 0 06/30/19 11:11
== END 2019-06-30 13:35 | disposition home or self-care (01) ==
PROVIDERS: Emergency Provider Physician Assistant; PCP Family Medicine
DX: H60 Otitis externa (principal); H90.3 Sensorineural hearing loss, bilateral; E11.9 Type 2 diabetes mellitus without complications; Z79.4 Long term (current) use of insulin
CPT/HCPCS: 99282

== ENCOUNTER 2019-08-20 00:35 | Outpatient (CLI) | payer MEDICARE, MEDICAID, SELFPAY ==
--- NOTE | 2019-08-20 10:53 | DI.MAMMO_ITS ---
EXAM: MG MAMMO SCREENING CLINICAL HISTORY: screening TECHNIQUE: Bilateral full field digital CC and MLO mammographic images were obtained with 3D tomosyn thesis and utilizing computer aided detection (CAD). COMPARISON: Available for comparison. FINDINGS: Masses/Architectural Distortion: None seen. There is asymmetric density seen in the upper outer quadr ant of the right breast. It appears to be subcutaneous in location. Spot compression view and a rig ht breast ultrasound are recommended for further evaluation. Microcalcifications: No suspicious pleomorphic-type are seen. Skin Thickening/Nipple Retraction: None. IMPRESSION: 1. Asymmetric density in the upper-outer quadrant of the right breast. This area should be further e valuated with spot compression view and right breast ultrasound. BI-RADS Cat 0 - Assessment Incomplete: Need additional imaging evaluation Breast Density - Category B - Scattered areas of fibroglandular density A negative radiographic report should not delay biopsy if a dominant or clinically suspicious mass is present. Up to ten percent of cancers are not identified on mammography. A negative report may reinforce clinical impression. Adenosis and dense breasts may obscure an underlying neoplasm. False positive reports average 6 to 10%. Patient will receive a letter notifying them of these results.
== END 2019-08-20 00:55 ==
PROVIDERS: PCP Family Medicine; Visit Provider Nurse Practitioner Family
DX: Z12.31 Encounter for screening mammogram for malignant neoplasm of breast (principal); R92.8 Other abnormal and inconclusive findings on diagnostic imaging of breast
CPT/HCPCS: 77063; 77067

== ENCOUNTER 2019-08-23 01:03 | Outpatient (CLI) | payer MEDICARE, MEDICAID, SELFPAY ==
--- NOTE | 2019-08-23 13:53 | DI.MAMMO_ITS ---
EXAM: MG MAMMO SCREEN CALL BACK UNI AND RIGHT BREAST ULTRASOUND CLINICAL HISTORY: ASYMMETRIC DENSITY UPPER OUTER QUADRANT, RT BREAST TECHNIQUE: Craniocaudal and mediolateral oblique Full Field Digital Mammography views with Computer Aided Diagnosis followed by Breast Tomosynthesis and right breast ultrasound. COMPARISON: Priors for comparison FINDINGS: Mammography/Tomosynthesis: Breast Density: Breast Density - Category B - Scattered areas of fibroglandular density Masses/Architectural Distortion: None seen. Microcalcifications: No suspicious pleomorphic-type are seen. Skin Thickening/Nipple Retraction: There is again seen an asymmetric density in the subcutaneous tiss ues in the upper outer quadrant of the right breast. No associated microcalcifications are present. Breast Ultrasound: Right breast ultrasound Echotexture: Normal appearance of the glandular tissue. Shadowing: No suspicious foci. Cyst: None. Solid lesions: None seen. Ductal dilation: None. Subcutaneous tissues: There is a small amount of fluid seen in the subcutaneous tissues in the upper outer quadrant of the right breast. This corresponds to the area on mammography. This also correspo nds to an area of redness on the skin surface. IMPRESSION: 1. No evidence for malignancy at this time. 2. Mammographic and sonographic findings are consistent with subcutaneous edema. 3. Unless there is more urgent need, follow-up screening mammography is recommended, as per [place] [employer] guidelines. ACR BI-RAD Category- 1 Negative Breast Density - Category B - Scattered areas of fibroglandular density The findings were discussed with the patient on the date of the examination. A negative radiographic report should not delay biopsy if a dominant or clinically suspicious mass is present. Up to ten percent of cancers are not identified on mammography. A negative report may reinforce clinical impression. Adenosis and dense breasts may obscure an underlying neoplasm. False positive reports average 6 to 10%. Patient will receive a letter notifying them of these results.
== END 2019-08-23 01:23 ==
PROVIDERS: PCP Family Medicine; Visit Provider Nurse Practitioner Family
DX: Z12.31 Encounter for screening mammogram for malignant neoplasm of breast (principal); R92.8 Other abnormal and inconclusive findings on diagnostic imaging of breast; N63.11 Unspecified lump in the right breast, upper outer quadrant
CPT/HCPCS: 76642; 77063; 77067

== ENCOUNTER 2019-09-02 10:50 | Outpatient (CLI) | payer MEDICARE, MEDICAID, SELFPAY ==
[2019-09-02 13:24] LABS: ALT 27 U/L (14-59); AST 26 U/L (15-37); Albumin 3.5 g/dL (3.4-5.0); Alkaline Phosphatase 123 U/L (46-116); Anion Gap 9.9 mmol/L (3-11); BUN 21 mg/dL (7-18); Bilirubin, Total 0.4 mg/dL (0.2-1.0); C-Reactive Protein 0.44 mg/dL (0.0-0.3); CO2 26.1 mmol/L (21.0-32.0); CREATININE 0.86 mg/dL (0.55-1.02); Calcium 9.1 mg/dL (8.5-10.1); Chloride 104 mmol/L (98-107); Glucose 295 mg/dL (74-106); Potassium 4.7 mmol/L (3.5-5.1); Sodium 140 mmol/L (136-145); Total Protein 6.6 g/dL (6.4-8.2)
[2019-09-02 14:07] LABS: Hemoglobin A1C 7.5 % (4.5-6.2)
== END 2019-09-02 11:10 ==
PROVIDERS: PCP Family Medicine; Visit Provider Family Medicine
DX: E11.39 Type 2 diabetes mellitus with other diabetic ophthalmic complication (principal); M35.3 Polymyalgia rheumatica; E78.5 Hyperlipidemia, unspecified
CPT/HCPCS: 36415; 80053; 83036; 86140

== ENCOUNTER 2020-04-21 14:12 | Outpatient (REF) | payer MEDICARE, MEDICAID, SELFPAY ==
[2020-04-21 20:20] LABS: HCT 41.6 % (36.0-46.0); HGB 13.8 g/dL (12.0-15.5); Mean Corp. HGB Concentration 33.2 g/dL (32.0-36.0); Mean Corpuscular Hemoglobin 29.7 pg (27.0-33.0); Mean Corpuscular Volume 89.7 fL (80-95); Mean Platelet Volume 11.7 fL (8.0-11.0); Platelet Count 236 x1000/uL (130-400); RBC 4.64 m/cumm (4.00-5.20); White Blood Cell Count 8.18 k/cumm (4.4-10.8)
[2020-04-21 20:56] LABS: Anion Gap 9.9 mmol/L (3-11); BUN 19 mg/dL (7-18); CO2 25.1 mmol/L (21.0-32.0); CREATININE 0.84 mg/dL (0.55-1.02); Calcium 9.4 mg/dL (8.5-10.1); Chloride 105 mmol/L (98-107); Glucose 103 mg/dL (74-106); Potassium 4.4 mmol/L (3.5-5.1); Sodium 140 mmol/L (136-145); TSH (W/Ref FT4) 4.89 uIU/mL (0.36-3.74); Vitamin B12 365 pg/mL (193-986)
[2020-04-21 21:02] LABS: ESR 18 mm/hr (0-30)
[2020-04-21 21:17] LABS: C-Reactive Protein 0.43 mg/dL (0.0-0.3); FREE T4 1.01 ng/dL (0.76-1.46)
== END 2020-04-21 14:32 ==
LOC: NCHCN 14:12
PROVIDERS: PCP Family Medicine; Visit Provider Family Medicine
DX: D64.9 Anemia, unspecified (principal); E11.39 Type 2 diabetes mellitus with other diabetic ophthalmic complication; M35.3 Polymyalgia rheumatica; R60.0 Localized edema; R25.1 Tremor, unspecified
CPT/HCPCS: 80048; 85027; 85652; 82607; 84439; 84443; 86140

== ENCOUNTER 2020-08-20 15:11 | Outpatient (REF) | payer MEDICARE, MEDICAID, SELFPAY | END 2020-08-20 15:31 | LOC: NCHCN 15:11 | PROVIDERS: PCP Family Medicine; Visit Provider Family Medicine | DX: R30.0 Dysuria (principal); E11.39 Type 2 diabetes mellitus with other diabetic ophthalmic complication | CPT/HCPCS: 87077; 87086; 87186 ==

== ENCOUNTER 2021-04-22 15:00 | Outpatient (REF) | payer MEDICARE, MEDICAID, SELFPAY ==
[2021-04-22 19:24] LABS: HCT 42.5 % (36.0-46.0); HGB 13.8 g/dL (11.2-15.7)
[2021-04-22 19:27] LABS: ESR 24 mm/hr (0-30)
[2021-04-22 19:39] LABS: ALT 17 U/L (14-59); AST 16 U/L (15-37); Albumin 3.5 g/dL (3.4-5.0); Alkaline Phosphatase 97 U/L (46-116); Anion Gap 9.6 mmol/L (3-11); BUN 17 mg/dL (7-18); Bilirubin, Total 0.5 mg/dL (0.2-1.0); CO2 25.4 mmol/L (21.0-32.0); CREATININE 0.9 mg/dL (0.55-1.02); Calcium 9.4 mg/dL (8.5-10.1); Chloride 104 mmol/L (98-107); Glucose 245 mg/dL (74-106); Potassium 4.4 mmol/L (3.5-5.1); Sodium 139 mmol/L (136-145); Total Protein 6.5 g/dL (6.4-8.2)
== END 2021-04-22 15:01 | disposition home or self-care (01) ==
LOC: NCHCN 15:00
PROVIDERS: PCP Family Medicine; Visit Provider Family Medicine
DX: E11.39 Type 2 diabetes mellitus with other diabetic ophthalmic complication (principal); M35.3 Polymyalgia rheumatica; D64.9 Anemia, unspecified; I10 Essential (primary) hypertension
CPT/HCPCS: 80053; 85652; 85014; 85018

== ENCOUNTER 2021-06-09 03:15 | Outpatient (CLI) | payer MEDICARE, MEDICAID, SELFPAY ==
--- NOTE | 2021-07-13 09:32 | CER_ITS ---
Date of service: 07/13/21 Time of Service: 09:32 Cardiac Event Recorder Referring Provider:: Jannie Harvey Indications:: Dyspnea Cardiac Event Note: This is a 30-day cardiac/vascular sonographer, reportedly ordered for dyspnea Predominant rhythm was sinus. Average heart rate was 79. Minimum was 57, maximum 110 There were no significant ventricular dysrhythmias There were 2 episodes of atrial fibrillation. Average heart rate while in atrial fibrillation was 138. Atrial fibrillation comprised 1% of the recording No specific patient symptoms were reported
== END 2021-06-09 03:16 | disposition home or self-care (01) ==
LOC: RT 03:15
PROVIDERS: PCP Family Medicine; Visit Provider Family Medicine
DX: R06.09 Other forms of dyspnea (principal)
CPT/HCPCS: 93270

== ENCOUNTER 2021-07-07 07:43 | Emergency (ER) | payer MEDICARE, MEDICAID, SELFPAY ==
[2021-07-07] VITALS (16 sets, daily range): BP systolic 127–149; BP diastolic 65–84; PULSE 82–147; RESP 9–31; TEMP 36.5; O2SAT 98–99
--- NOTE | 2021-07-07 07:30 | RT.EKG_ITS ---
APPROVED REPORT Exam: Resting ECG Reason for Exam: afib? Patient Location: E HR:136 bpm ECG Measurements Heart Rate 136 AXIS ND [id number] P [id number] QRSd 89 QRS 54 QT 340 T 44 QTc 513 Conclusion Atrial fibrillation...? atrial activity Paired ventricular premature complexes...sequence of [address] elevation, consider inferior injury...ST >0.08mV, II III aVF Prolonged QT interval...QTc >500mS
--- NOTE | 2021-07-07 07:54 | W.ED.GENAD ---
Discharge Plan Disposition Patient Disposition: HOME Condition: Stable Discharge Details Clinical Impression: General weakness, Atrial fibrillation with RVR, Urinary tract infection Primary Care Provider: Jannie Harvey V ED Provider: Celso Guajardo Home Meds and New Rx's Prescriptions: New levofloxacin 750 mg tablet 750 mg PO DAILY Qty: 5 RF: 0 Eliquis DVT-PE Treat 30D Start 5 mg (74 tabs) tablets,dose pack See Rx Instructions .ROUTE .COMPLEX Qty: 74 RF: 0 Continued Levemir U-100 Insulin 100 unit/mL solution 14 unit SC QPM RF: 0 aspirin [Aspir-81] 81 MG tablet,delayed release (DR/EC) 81 mg PO DAILY RF: 0 valsartan [Diovan] 40 MG tablet 40 mg PO DAILY RF: 0 calcium carbonate-vitamin D3 [Caltrate with Vitamin D3] 1 EACH tablet 1 ea PO RF: 0 Centrum Silver 1 EACH tablet 1 tab PO DAILY RF: 0 ezetimibe [Zetia] 10 MG tablet 1 tab PO DAILY RF: 0 insulin lispro [Humalog U-100 Insulin] 100 UNIT/1 ML solution 0 unit SQ PC Qty: 0 RF: 0 Levemir U-100 Insulin 100 UNIT/1 ML solution 14 unit SQ QPM Qty: 0 RF: 0 cholecalciferol (vitamin D3) 50 mcg (2,000 unit) tablet 50 mcg PO DAILY RF: 0 Discharge Instructions Instructions: A-fib (Atrial Fibrillation) (ED), Urinary Tract Infection in Women (ED) Additional Instructions: you were in atrial fibrillation when you arrived and you converted to a normal rhythm when you arrived you were found to have a urinary tract infection follow up with your primary care provider within 1 week if you feel more ill, have chest pain/pressure or difficulty breathing return to the emergency department Medical Decision Making 85 yo female with hx of t2dm and she believes she has a history of afib because her pcp mentioned it once but is not on blood thinners and is not documented in her history comes in with ems with general weakness. She had a holter monitor placed for dizziness and weakness a month ago and denies this is a daily issue and states yesterday she felt well without symptoms and woke up feeling general fatigue. She states she tried walking but her legs felt too weak and so she called ems. She arrives stable speaking in full sentences in no distress. She has no focal motor or sensation deficits and CN II-XII are intact, nih of 0 on my initial exam. She denies any chest pain, fevers, dyspnea. She is noted to be in afib with rvr on the monitor rates in the 110-130 and does appear mildly dehydrated on exam. Will treat with ivf and reassess her heart rate and if still having rvr despite fluids will consider deanne blockade. Will evaluate for electrolyte abnormality and possible uti as she has had them frequently in the past. She has no chest pain or pressure so doubt acs. Wells score low, will send d dimer. shortly after ivf started she converted to sinus rhythm, blood work thus far benign, no significant anemia or electrolyte abnoramlity and troponin negative, ddimer and xray pending, ua shows postitive nitrites will treat with ceftriaxone, had susceptible e coli on culture in 08/28. Pt remains stable. pt remains stable, ct shows no pe has small infiltrates though denies any fevers or cough, will start on levofloxacin to cover for possible cap and uti. Her 2nd troponin is 0.1 likely from demand from earlier afib as she has no dyspnea, chest pain or pressure so doubt acs at this time. discussed findings with the patient and she feels well enough for d/c and is still in sinus rhythm. Based on [id number] score she should be on anticoagulation, discussed with her and no history of major bleeding events or falls and she is willing to start anticoagulation. will start her on eliquis. Discussed with her and her daughter and she will f/u with pcp within a week and return precautions given Differential Diagnosis Differential Diagnosis: afib, electrolyte abnormality, Medical Records Medical records reviewed: Yes I reviewed the patient's medical records. Imaging Data Radiologic Study: Attestation: I personally reviewed and interpreted this imaging study as follows: Imaging: X-Ray Radiologist's impression: IMPRESSION: Mild increased markings in the lateral left lung base adjacent to the heart border. This may indicate infiltrate in the inferior lingular segment of the left lung. Also slight blunting of the costophrenic angle at this level. The opposite-right lung is clear. Radiologic Study #2: Attestation: I personally reviewed and interpreted this imaging study as follows: Imaging: CT Scan Radiologist's impression: IMPRESSION: 1. No evidence of acute pulmonary emboli. No evidence of pulmonary infarction.No pleural effusions. 2. However, there is mild infiltrate in both lung bases as described above. No adenopathy evident 3. Cardiomegaly. No pericardial effusion Lab Data Lab results reviewed: Yes I reviewed the patient's lab results. ECG Data Attestation: I personally reviewed and interpreted this ECG (s) as follows: Prior ECG tracings: not available for review Interpretation: atrial fib, rate of 130, mild lateral st depression likely rate related, no stemi 2nd ekg sinus rhythm, rate of 86, no acute ischemic findings HPI General Mode of arrival: EMS. Date/Time Provider Initiated Documentation: 07/07/21 07:50. Limitations to Documentation: no limitations. Information obtained by: patient. History of Present Illness 85 year old F presents to the emergency department with the chief complaint of general weakness, described as moderate, Patient started experiencing this hour(s) (2) and it has been constant. No relieving factors improve symptom(s), No exacerbating factors reported . Patient notes no other symptoms.; denies chest pain, diaphoresis, fever/chills and headaches. Patient did receive the following treatments prior to arrival, none Related Data Home Medications Medication Instructions Recorded Confirmed aspirin [Aspir-81] 81 mg PO DAILY tab-cap 06/17/13 07/07/21 calcium carbonate-vitamin D3 1 ea PO 06/17/13 05/13/21 [Caltrate with Vitamin D3] valsartan [Diovan] 40 mg PO DAILY 06/17/13 07/07/21 Centrum Silver 1 tab PO DAILY 07/21/15 07/07/21 ezetimibe [Zetia] 1 tab PO DAILY 07/21/15 07/07/21 Levemir U-100 Insulin 14 unit SQ QPM #0 vial 12/20/15 07/07/21 insulin lispro [Humalog U-100 0 unit SQ PC #0 vial 12/20/15 07/07/21 Insulin] insulin detemir U-100 100 unit/mL 14 unit SC QPM ml 07/16/18 07/07/21 subcutaneous solution apixaban [Eliquis DVT-PE Treat 30D See Rx Instructions .ROUTE 07/07/21 Start] .COMPLEX #74 dose pk cholecalciferol (vitamin D3) 50 mcg PO DAILY 07/07/21 07/07/21 levofloxacin 750 mg PO DAILY #5 tab 07/07/21 Previous Rx's Medication Instructions Recorded Levemir U-100 Insulin 14 unit SQ QPM #0 vial 12/20/15 insulin lispro [Humalog U-100 0 unit SQ PC #0 vial 12/20/15 Insulin] apixaban [Eliquis DVT-PE Treat 30D See Rx Instructions .ROUTE 07/07/21 Start] .COMPLEX #74 dose pk levofloxacin 750 mg PO DAILY #5 tab 07/07/21 Allergies Allergy/AdvReac Type Severity Reaction Status Date / Time dexamethasone [From Decadron] Allergy Severe Verified 07/07/21 08:27 Sulfa (Sulfonamide Allergy Severe Tongue Verified 07/07/21 08:27 Antibiotics) Swells lovastatin Allergy Intermediate Verified 07/07/21 08:27 amitriptyline Allergy Verified 07/07/21 08:27 lisinopril Allergy Verified 07/07/21 08:27 troglitazone Allergy Verified 07/07/21 08:27 dipyridamole [From Aggrenox] AdvReac Intermediate Dizziness/Lightheade Verified 07/07/21 08:27 blurred vision metformin AdvReac Intermediate Diarrhea Verified 07/07/21 08:27 Steroids Allergy Severe Uncoded 07/07/21 08:27 General Stated Complaint: GenMedical RAFA: 3 Review of Systems All systems reviewed & are unremarkable except as noted in HPI and below Constitutional Constitutional: Denies chills and Denies fever(s) Cardiovascular Cardiovascular: Denies chest pain and Denies dyspnea Respiratory Respiratory: Denies cough and Denies dyspnea Gastrointestinal Gastrointestinal: Denies abdominal pain, Denies nausea and Denies vomiting Genitourinary Genitourinary: Denies dysuria Musculoskeletal Musculoskeletal: Denies joint swelling Integumentary/Breasts Skin/Breast: Denies rash [facility] Medical History Bilateral hearing loss Bronchitis Diabetes mellitus Migraine Surgical History Bladder Surgery Repair H/O hernia repair H/O spinal fusion Laminectomy Repair of umbilical hernia Family History Father , 81 Hearing loss Mother , 102 Hearing loss Paternal Grandfather Diabetes Other Heart disease Hyperlipidemia Personal history of malignant neoplasm Social History Smoking/Tobacco Use Status: Never Smoking risk assessment performed?: Yes Alcohol Intake: current Alcohol Intake frequency: holidays/special occasions only Drug use: Never Substance use type: does not use Seatbelt use: always Do you feel safe at home: Yes Do you feel safe in your relationship?: Yes Female Reproductive History Menstrual Menopause type: natural History History 5 Para 5 Hx # Term Pregnancies 5 Multiple births Hx # Pregnancies Ectopic pregnancies AB induced Hx Number of Living Children AB spontaneous Exam Const General: no acute distress Orientation: alert HENMT Head: normal to inspection Ears: external ears normal General nose exam: external nose normal Mouth: moist mucous membranes Eyes General: appearance normal, both eyes and all related structures Neck Neck: normal visual inspection Resp Effort & Inspection: normal respiratory effort and able to speak in complete sentences Cardio Rate: regular rate GI Palpation: soft, not rigid and nontender Skin General skin exam: no rashes or lesions noted Neuro General: patient alert and patient oriented x3 Extrem General: normal to inspection Psych Mental Status: mental status grossly normal Course Vital Signs Vital signs: Vital Signs Pulse 123 H 07/07/21 07:48 Respiratory Rate 18 07/07/21 07:48 Blood Pressure 145/74 H 07/07/21 07:48 Pulse Oximetry 98 07/07/21 07:48 Pulse 123 H 07/07/21 07:48 Respiratory Rate 18 07/07/21 07:48 Blood Pressure 145/74 H 07/07/21 07:48 Blood Pressure Position Sitting 07/07/21 07:48 Pulse Oximetry 98 07/07/21 07:48 Oxygen Delivery Method Room Air 07/07/21 07:48 Oxygen Flow Rate 0 07/07/21 07:48
--- NOTE | 2021-07-07 08:01 | DI.RAD_ITS ---
Exam(s) XR CHEST 2V PA LATERAL EXAM: XR CHEST 2V PA LATERAL CLINICAL HISTORY: general weakness. TECHNIQUE: 2D digital imaging was performed. COMPARISON: CR RIGHT SHOULDER COMPLETE from 06/22/2017 FINDINGS: Heart size is normal. The mediastinum is not widened. Cardiac loop detector noted Right lung is clear. Mild increased markings in the lingular segment left lung base. No pulmonary e kuldip. No pneumothorax. IMPRESSION: Mild increased markings in the lateral left lung base adjacent to the heart border. This may indicat e infiltrate in the inferior lingular segment of the left lung. Also slight blunting of the costophr enic angle at this level. The opposite-right lung is clear. DATA REPOSITORY: RADIATION DOSE DELIVERED:
[2021-07-07 08:04] LABS: Abs Immature Grans 0.02 10^3/uL (0.0-0.06); Absolute Basophil Count 0.05 10^3/uL (0.0-0.2); Absolute Eosinophil Count 0.05 10^3/uL (0.0-0.7); Absolute Monocyte Count 0.53 10^3/uL (0.1-0.8); Absolute Neutrophil Count 5.57 10^3/uL (1.2-6.7); Basophils % 0.6; Eosinophils % 0.6; HCT 45.9 % (36.0-46.0); HGB 14.9 g/dL (11.2-15.7); Immature Grans % 0.3; Lymphocytes % 19.4; MCH 28.9 pg (27.0-33.0); MCHC 32.5 % (32.0-36.0); MCV 89.1 fL (80-95); Monocytes % 6.9; Neutrophils % 72.2; Nucleated RBC 0 %; Platelet Count 219 10^3/uL (130-400); RBC 5.15 10^6/uL (3.93-5.22); RDW 14.6 % (11.7-14.6); RDW-SD 48.7 fL; WBC 7.72 10^3/uL (4.4-10.8)
[2021-07-07 08:25] LABS: Source Nasal/Nares
[2021-07-07 08:30] LABS: ALT 23 U/L (14-59); AST 26 U/L (15-37); Albumin 3.6 g/dL (3.4-5.0); Alkaline Phosphatase 109 U/L (46-116); Anion Gap 9.5 mmol/L (3-11); BUN 21 mg/dL (7-18); Bilirubin, Total 0.6 mg/dL (0.2-1.0); CO2 27.5 mmol/L (21.0-32.0); Calcium 9.5 mg/dL (8.5-10.1); Chloride 102 mmol/L (98-107); Estimated GFR 52.95 (mL/min/1.73m2); Glucose 257 mg/dL (74-106); Potassium 3.6 mmol/L (3.5-5.1); Sodium 139 mmol/L (136-145); Total Protein 7.2 g/dL (6.4-8.2); Troponin I < 0.05 ng/mL (<0.06)
--- NOTE | 2021-07-07 08:30 | RT.EKG_ITS ---
APPROVED REPORT Exam: Resting ECG Reason for Exam: converted from afib Patient Location: E HR:86 bpm ECG Measurements Heart Rate 86 AXIS UT 174 P 8 QRSd 96 QRS -8 QT 407 T 37 QTc 488 Conclusion Sinus rhythm...normal P axis, V-rate 60- 99
[2021-07-07 08:32] LABS: Magnesium 1.8 mg/dL (1.8-2.4); TSH (W/Ref FT4) 6.53 uIU/mL (0.36-3.74)
[2021-07-07] MEDS: Normal Saline 1,000 ML 1000 ML IV (08:36)
[2021-07-07 08:39] LABS: Bilirubin Negative (Negative); Blood Negative (Negative); Clarity Sl Cloudy (Clear); Glucose 500 mg/dL (Negative); Ketones 40 mg/dL (Negative); Nitrite Positive (Negative); Specific Gravity 1.025 (1.005-1.025); Urobilinogen 0.2 EU/dL (Up TO 0.2)
[2021-07-07 08:44] LABS: Bacteria Many HPF (Negative); Epithelial Cells Many HPF (Negative); Leukocyte Esterase Trace (Negative); WBC 20-50 HPF (0-5)
[2021-07-07 08:45] LABS: C & S Indicated? No/Sq. Contamination; Casts Negative LPF (Negative); Crystals Negative HPF (Negative); Mucus Negative (Negative)
[2021-07-07 09:06] LABS: D-Dimer 967 ng/mlFEU (<500)
[2021-07-07 09:17] LABS: COVID-19 PCR Negative (Negative)
[2021-07-07] MEDS: cefTRIAXone 2 GM/50 ML BAG IVPB (09:45)
[2021-07-07] MEDS: Omnipaque 350 MG/ML 100 ML BTL IJ (11:13)
[2021-07-07] MEDS: Normal Saline - Diluent 50 ML VIAL IV (11:14)
[2021-07-07] MEDS: Normal Saline Flush 10 ML SYR IVP (11:14)
--- NOTE | 2021-07-07 11:20 | DI.CT_ITS ---
Exam(s) CT CHEST PE CTA EXAM: CT CHEST PE CTA CLINICAL HISTORY: tachycardia, elevated d dimer. TECHNIQUE: Imaging Protocol: CT angiography of the chest was performed using pulmonary embolus pauly col. Multi planar reconstructions were performed. CONTRAST MATERIAL: Intravenous: Omnipaque 350 Contrast volume: 65 cc COMPARISON: No exams were available for comparison FINDINGS: CHEST: PULMONARY ARTERIES: There are no intraluminal filling defects to suggest acute pulmonary emboli. LUNGS: Mild benign-appearing increased markings noted in the inferior lingular segment of the left dory ng. Also mild infiltrate evident in the lateral basal segment of the left lower lobe. Mild infiltrate also noted in the posterior basal segment of the right lower lobe.. There are no pleural effusions. MEDIASTINUM: There is no hilar nor mediastinal adenopathy. CARDIAC: Cardiomegaly. No pericardial effusion.Caliber of the thoracic aorta is within normal limits. There is no significant shift of the interventricular septum. PARTIALLY VISUALIZED UPPERMOST ABDOMEN: No obvious findings OSSEOUS: No significant osseous lesions.. IMPRESSION: 1. No evidence of acute pulmonary emboli. No evidence of pulmonary infarction.No pleural effusions. 2. However, there is mild infiltrate in both lung bases as described above. No adenopathy evident 3. Cardiomegaly. No pericardial effusion RADIATION DOSE DELIVERED: 355.89mGy.cm Total DLP DATA REPOSITORY: All CT scans at this facility are submitted to the National Radiology Data Registry (NRDR) Dose Index Registry (DIR) with the [employer] (A[employer]). RADIATION OPTIMIZATION: All CT scans at this facility use at least one of these dose optimization te chniques: automated exposure control; mA and/or kV adjustment per patient size (includes targeted exa ms where dose is matched to clinical indication); or iterative reconstruction.
--- NOTE | 2021-07-07 20:13 | NUR.NOTE ---
Referral faxed to [facility] Dr Harvey to f/u in 1 week for a-fib, uti, starting blood thinner.Nursing Note:
== END 2021-07-07 12:47 | disposition home or self-care (01) ==
PROVIDERS: Emergency Provider Emergency Medicine; PCP Family Medicine
DX: I48.91 Unspecified atrial fibrillation (principal); N39.0 Urinary tract infection, site not specified; R79.1 Abnormal coagulation profile; R91.8 Other nonspecific abnormal finding of lung field; E11.9 Type 2 diabetes mellitus without complications; Z79.4 Long term (current) use of insulin; Z20.822 Contact with and (suspected) exposure to COVID-19; Z03.818 Encounter for observation for suspected exposure to other biological agents ruled out; Z87.440 Personal history of urinary (tract) infections
CPT/HCPCS: 36415; 71275; 80053; 81025; 87077; 87635; 93005; 96361; 96365; 99285; 71046; 81003; 81015; 83735; 84439; 84443; 84484; 85025; 85379; 87086; 87186; 93010; J3490

== ENCOUNTER 2021-07-13 01:12 | Outpatient (CLI) | payer MEDICARE, MEDICAID, SELFPAY ==
--- NOTE | 2021-07-13 | DI.MAMMO_ITS ---
Exam(s) MAMMO SCREENING EXAM: MAMMO SCREENING CLINICAL HISTORY: SCREENING,Z12.39 TECHNIQUE: Bilateral full field digital CC and MLO mammographic images were obtained with 3D tomosyn thesis and utilizing computer aided detection (CAD). COMPARISON: Available for comparison. FINDINGS: Masses/Architectural Distortion: None seen. Microcalcifications: No suspicious pleomorphic-type are seen. Stable classifications are seen in both breasts. Skin Thickening/Nipple Retraction: None. IMPRESSION: 1. No significant interval change with no specific features of malignancy noted. 2. Unless there is more urgent need, screening mammography is recommended, as per [employer] guidelines. BI-RADS Category 1 - Negative Breast Density - Category B - Scattered areas of fibroglandular density Breast density category C or D implies that the patient has dense breast tissue. Dense breast tissue is very common and is not abnormal but dense breast tissue can make it harder to find cancer on a ma mmogram. Also, dense breast tissue may increase their breast cancer risk. This information about the result of the mammogram report was provided to the patient to raise their awareness. Use this report when you speak with the patient about their risks for breast cancer, which includes their family hist ory. At that time, you may recommend for more screening tests (Ultrasound or MRI) as they might be us eful based on their risk. A negative radiographic report should not delay biopsy if a dominant or clinically suspicious mass is present. Up to ten percent of cancers are not identified on mammography. A negative report may reinforce clinical impression. Adenosis and dense breasts may obscure an underlying neoplasm. False positive reports average 6 to 10%. Patient will receive a letter notifying them of these results.
== END 2021-07-13 01:32 ==
PROVIDERS: PCP Family Medicine; Visit Provider Family Medicine
DX: Z12.31 Encounter for screening mammogram for malignant neoplasm of breast (principal)
CPT/HCPCS: 77063; 77067

== ENCOUNTER 2021-07-13 09:32 | Outpatient (CLI) | payer MEDICARE, MEDICAID, SELFPAY | END 2021-07-13 09:33 | LOC: CARDO 07-14 13:50 | PROVIDERS: PCP Family Medicine; Referring Provider Family Medicine; Visit Provider Internal Medicine Cardiovascular Disease | DX: R06.09 Other forms of dyspnea (principal); I48.91 Unspecified atrial fibrillation | CPT/HCPCS: 93272 ==

== ENCOUNTER 2021-08-27 17:55 | Outpatient (REF) | payer MEDICARE, MEDICAID, SELFPAY ==
--- NOTE | 2021-08-27 15:08 | SKI_PTH ---
PATIENT: Mahsa Omalley LOC: [facility] U#:[id number] AGE/SX: 85/F ROOM: RE08/27/[address]: ANABEL Oakley : 1935 BED: DIS: 08/27/2021 SPEC #: [id number] RECD: 08/27/21 17:59 STATUS: JORDAN REQ #: [id number] BRANDON: 08/27/21 15:[address]: Emeterio Burkett DEPT: Surgical Specimen RECD BY: Nano Carney ENTERED: 08/27/21 18:00 SP TYPE: ADELA AMEZCUA DR: Jannie Harvey V Tissues: 1 - SKIN BIOPSY(SHAVE/PUNCH) Procedures: SKIN LEVEL 4 Comments: [id number]
== END 2021-08-27 17:56 | disposition home or self-care (01) ==
LOC: LBN 17:55
PROVIDERS: PCP Family Medicine; Visit Provider Physician Assistant
DX: D04.39 Carcinoma in situ of skin of other parts of face (principal)
CPT/HCPCS: 88305

== ENCOUNTER 2021-09-01 13:15 | Outpatient (REF) | payer MEDICARE, MEDICAID, SELFPAY ==
[2021-09-01 17:34] LABS: ALT 26 U/L (14-59); AST 21 U/L (15-37); Albumin 3.4 g/dL (3.4-5.0); Alkaline Phosphatase 125 U/L (46-116); Bilirubin, Direct 0.1 mg/dL (0.0-0.2); Bilirubin, Total 0.5 mg/dL (0.2-1.0); Total Protein 6.2 g/dL (6.4-8.2)
== END 2021-09-01 13:16 | disposition home or self-care (01) ==
LOC: NCHCN 13:15
PROVIDERS: PCP Family Medicine; Visit Provider Family Medicine
DX: B35.1 Tinea unguium (principal)
CPT/HCPCS: 80076

== ENCOUNTER 2021-11-26 18:10 | Outpatient (REF) | payer MEDICARE, MEDICAID, SELFPAY ==
[2021-11-26 20:54] LABS: HCT 41.4 % (36.0-46.0); HGB 13.4 g/dL (11.2-15.7); MCH 29.2 pg (27.0-33.0); MCHC 32.4 % (32.0-36.0); MCV 90.2 fL (80-95); MPV 11.5 fL (8.0-11.0); Platelet Count 226 10^3/uL (130-400); RBC 4.59 10^6/uL (3.93-5.22); RDW 14.5 % (11.7-14.6); RDW-SD 48.1 fL; WBC 5.65 10^3/uL (4.4-10.8)
[2021-11-26 20:57] LABS: ESR 16 mm/hr (0-30)
[2021-11-26 21:15] LABS: ALT 24 U/L (14-59); AST 24 U/L (15-37); Albumin 3.5 g/dL (3.4-5.0); Alkaline Phosphatase 92 U/L (46-116); Anion Gap 9.1 mmol/L (3-11); BUN 15 mg/dL (7-18); Bilirubin, Total 0.4 mg/dL (0.2-1.0); C-Reactive Protein 0.46 mg/dL (0.0-0.3); CO2 24.9 mmol/L (21.0-32.0); CREATININE 0.7 mg/dL (0.55-1.02); Chloride 103 mmol/L (98-107); Glucose 228 mg/dL (74-106); Potassium 4.4 mmol/L (3.5-5.1); Sodium 137 mmol/L (136-145); TSH (W/Ref FT4) 3.76 uIU/mL (0.36-3.74); Total Protein 6.4 g/dL (6.4-8.2)
[2021-11-26 21:32] LABS: FREE T4 1.11 ng/dL (0.76-1.46)
== END 2021-11-26 18:11 | disposition home or self-care (01) ==
LOC: NCHCN 18:10
PROVIDERS: PCP Family Medicine; Visit Provider Family Medicine
DX: I48.0 Paroxysmal atrial fibrillation (principal); B35.1 Tinea unguium; E11.9 Type 2 diabetes mellitus without complications; R94.6 Abnormal results of thyroid function studies; M35.3 Polymyalgia rheumatica
CPT/HCPCS: 80053; 85027; 85652; 84439; 84443; 86140

== ENCOUNTER 2022-03-03 09:28 | Outpatient (CLI) | payer MEDICARE, MEDICAID, SELFPAY ==
--- NOTE | 2022-03-03 09:15 | RT.EKG_ITS ---
APPROVED REPORT Exam: Resting ECG Reason for Exam: afib Patient Location: O HR:67 bpm ECG Measurements Heart Rate 67 AXIS MS 155 P -7 QRSd 97 QRS -5 QT 423 T 21 QTc 447 Conclusion Sinus rhythm...normal P axis, V-rate 50- 99
== END 2022-03-03 09:29 | disposition home or self-care (01) ==
LOC: DI.CARD 09:29
PROVIDERS: PCP Family Medicine; Visit Provider Internal Medicine Cardiovascular Disease
DX: I48.91 Unspecified atrial fibrillation (principal)
CPT/HCPCS: 93010

== ENCOUNTER → 2022-03-03 12:43 | Outpatient (BNVA) | payer MEDICARE, MEDICAID, SELFPAY | PROVIDERS: PCP Family Medicine; Referring Provider Family Medicine; Visit Provider Internal Medicine Cardiovascular Disease | DX: I48.0 Paroxysmal atrial fibrillation (principal); I10 Essential (primary) hypertension | CPT/HCPCS: 93005; 99203; 99214 ==

== ENCOUNTER 2022-06-03 12:53 | Outpatient (REF) | payer MEDICARE, MEDICAID, SELFPAY ==
--- NOTE | 2022-06-03 11:25 | SKI_PTH ---
PATIENT: Mahsa Omalley LOC: [facility] U#:[id number] AGE/SX: 86/F ROOM: RE06/03/[address]: ANABEL Oakley : 1935 BED: DIS: 06/03/2022 SPEC #: [id number] RECD: 06/03/22 18:08 STATUS: JORDAN RENatalie #: [id number] BRANDON: 06/03/22 11:[address]: Emeterio Burkett DEPT: Surgical Specimen RECD BY: Nano Carney ENTERED: 06/03/22 18:08 SP TYPE: ADELA AMEZCUA DR: Jannie Harvey V Tissues: 1 - SKIN BIOPSY(SHAVE/PUNCH) Procedures: SKIN LEVEL 4 Comments: [id number]
== END 2022-06-03 12:54 | disposition home or self-care (01) ==
LOC: LBN 12:53
PROVIDERS: PCP Family Medicine; Visit Provider Physician Assistant
DX: B07.8 Other viral warts (principal)
CPT/HCPCS: 88305

== ENCOUNTER 2022-10-28 12:39 | Outpatient (REF) | payer MEDICARE, MEDICAID, SELFPAY ==
[2022-10-28 15:11] LABS: ESR 43 mm/hr (0-30)
[2022-10-28 15:35] LABS: Hemoglobin A1C 8.3 % (<5.7)
[2022-10-28 15:56] LABS: ALT 21 U/L (14-59); AST 24 U/L (15-37); Albumin 3.4 g/dL (3.4-5.0); Alkaline Phosphatase 114 U/L (46-116); Anion Gap 9.1 mmol/L (3-11); BUN 22 mg/dL (7-18); Bilirubin, Total 0.6 mg/dL (0.2-1.0); CO2 26.9 mmol/L (21.0-32.0); CREATININE 0.8 mg/dL (0.55-1.02); Calcium 9.8 mg/dL (8.5-10.1); Calculated LDL 124 mg/dL (<100); Chloride 101 mmol/L (98-107); Cholesterol 232 mg/dL (<200); Estimated GFR 72.16 (mL/min/1.73m2); Glucose 220 mg/dL (74-106); HDL Cholesterol 86 mg/dL (40-60); Potassium 4.2 mmol/L (3.5-5.1); Sodium 137 mmol/L (136-145); TSH (W/Ref FT4) 2.95 uIU/mL (0.36-3.74); Total Protein 7.3 g/dL (6.4-8.2); Triglyceride 110 mg/dL (<150)
[2022-10-28 16:26] LABS: C-Reactive Protein 2.96 mg/dL (0.0-0.3)
== END 2022-10-28 12:40 | disposition home or self-care (01) ==
LOC: NCHCN 12:39
PROVIDERS: PCP Family Medicine; Visit Provider Family Medicine
DX: E11.9 Type 2 diabetes mellitus without complications (principal); R94.6 Abnormal results of thyroid function studies; I48.0 Paroxysmal atrial fibrillation; M35.3 Polymyalgia rheumatica
CPT/HCPCS: 80053; 80061; 85652; 83036; 84443; 86140

== ENCOUNTER 2022-12-12 17:28 | Outpatient (REF) | payer MEDICARE, MEDICAID, SELFPAY ==
[2022-12-12 15:24] LABS: ESR 29 mm/hr (0-30)
[2022-12-12 15:41] LABS: C-Reactive Protein 2.58 mg/dL (0.0-0.3); Creatine Kinase 44 U/L (26-192)
== END 2022-12-12 17:29 | disposition home or self-care (01) ==
LOC: NCHCN 17:28
PROVIDERS: PCP Family Medicine; Visit Provider Family Medicine
DX: M35.3 Polymyalgia rheumatica (principal)
CPT/HCPCS: 82550; 85652; 86140

== ENCOUNTER 2023-01-10 03:04 | Outpatient (CLI) | payer MEDICARE, MEDICAID, SELFPAY ==
[2023-01-10 12:20] LABS: ESR 32 mm/hr (0-30)
[2023-01-10 12:52] LABS: C-Reactive Protein 2.65 mg/dL (0.0-0.3); Creatine Kinase 33 U/L (26-192)
== END 2023-01-10 03:05 | disposition home or self-care (01) ==
LOC: LOS 03:04
PROVIDERS: PCP Family Medicine; Visit Provider Family Medicine
DX: M35.3 Polymyalgia rheumatica (principal)
CPT/HCPCS: 36415; 82550; 85652; 86140

== ENCOUNTER 2023-03-27 04:28 | Outpatient (CLI) | payer MEDICARE, MEDICAID, SELFPAY ==
[2023-03-27 12:30] LABS: ESR 13 mm/hr (0-30)
[2023-03-27 13:02] LABS: C-Reactive Protein 1.15 mg/dL (0.0-0.3)
== END 2023-03-27 04:29 | disposition home or self-care (01) ==
LOC: LOS 04:28
PROVIDERS: PCP Family Medicine; Visit Provider Family Medicine
DX: M35.3 Polymyalgia rheumatica (principal)
CPT/HCPCS: 36415; 85652; 86140

== ENCOUNTER 2023-05-01 04:38 | Outpatient (CLI) | payer MEDICARE, MEDICAID, SELFPAY ==
[2023-05-01 12:14] LABS: ESR 15 mm/hr (0-30)
[2023-05-01 12:22] LABS: C-Reactive Protein 1.24 mg/dL (0.0-0.3)
== END 2023-05-01 04:39 | disposition home or self-care (01) ==
LOC: LOS 04:38
PROVIDERS: PCP Family Medicine; Visit Provider Family Medicine
DX: M35.3 Polymyalgia rheumatica (principal)
CPT/HCPCS: 36415; 85652; 86140

== ENCOUNTER 2023-06-01 13:46 | Outpatient (REF) | payer MEDICARE, MEDICAID, SELFPAY ==
[2023-06-01 17:18] LABS: ESR 17 mm/hr (0-30)
[2023-06-01 17:55] LABS: C-Reactive Protein 0.43 mg/dL (0.0-0.3)
== END 2023-06-01 13:47 | disposition home or self-care (01) ==
LOC: NCHCN 13:46
PROVIDERS: PCP Family Medicine; Visit Provider Family Medicine
DX: E11.9 Type 2 diabetes mellitus without complications (principal); M35.3 Polymyalgia rheumatica
CPT/HCPCS: 85652; 86140

== ENCOUNTER 2023-07-06 05:04 | Outpatient (CLI) | payer MEDICARE, MEDICAID, SELFPAY ==
[2023-07-06 12:27] LABS: HCT 40.9 % (36.0-46.0); HGB 13.1 g/dL (11.2-15.7); MCH 29.7 pg (27.0-33.0); MCV 93 fL (80-95); MPV 11.2 fL (8.0-11.0); Platelet Count 228 10^3/uL (130-400); RBC 4.41 10^6/uL (3.93-5.22); RDW 14.7 % (11.7-14.6); RDW-SD 51.1 fL
[2023-07-06 12:46] LABS: Anion Gap 7.4 mmol/L (3-11); BUN 19 mg/dL (7-18); CO2 27.6 mmol/L (21.0-32.0); Calcium 9.9 mg/dL (8.5-10.1); Chloride 105 mmol/L (98-107); Creatine Kinase 42 U/L (26-192); Estimated GFR 55.21 (mL/min/1.73m2); Glucose 202 mg/dL (74-106); Potassium 3.6 mmol/L (3.5-5.1); Sodium 140 mmol/L (136-145)
== END 2023-07-06 05:05 | disposition home or self-care (01) ==
LOC: LOS 05:04
PROVIDERS: PCP Family Medicine; Visit Provider Family Medicine
DX: Z79.01 Long term (current) use of anticoagulants (principal); M35.3 Polymyalgia rheumatica; I10 Essential (primary) hypertension
CPT/HCPCS: 36415; 80048; 82550; 85027

== ENCOUNTER → 2023-08-03 10:20 | Outpatient (BNVA) | payer MEDICARE, MEDICAID, SELFPAY | PROVIDERS: PCP Family Medicine; Referring Provider Podiatrist; Visit Provider Physical Therapy Assistant | DX: E11.59 Type 2 diabetes mellitus with other circulatory complications (principal) | CPT/HCPCS: 93922 ==

== ENCOUNTER 2023-09-15 16:08 | Outpatient (REF) | payer MEDICARE, MEDICAID, SELFPAY ==
[2023-09-15 19:13] LABS: ESR 24 mm/hr (0-30)
[2023-09-15 19:24] LABS: C-Reactive Protein 0.49 mg/dL (0.0-0.3)
== END 2023-09-15 16:09 | disposition home or self-care (01) ==
LOC: NCHCN 16:08
PROVIDERS: PCP Family Medicine; Visit Provider Family Medicine
DX: M35.3 Polymyalgia rheumatica (principal)
CPT/HCPCS: 85652; 86140

== ENCOUNTER 2023-10-12 20:43 | Emergency (ER) | payer MEDICARE, MEDICAID, SELFPAY ==
[2023-10-12 20:48] VITALS: PULSE 81; RESP 18; TEMP 36.5; O2SAT 99
[2023-10-12 20:56] VITALS: BP 171/66
--- NOTE | 2023-10-12 21:00 | DI.RAD_ITS ---
Exam(s) XR PELVIS AP XR FEMUR RT EXAM: XR PELVIS AP and XR femur RT CLINICAL HISTORY: right lower ext pain, likely sciatica. TECHNIQUE: 2D digital imaging was performed. Five images were obtained. COMPARISON: There are no priors for comparison. FINDINGS: BONES: No acute fracture is present. No bony destructive lesion is seen. JOINTS: No dislocation present. There is mild narrowing of the hip joints bilaterally. There are mil d degenerative changes seen at the sacroiliac joints bilaterally. The symphysis pubis is unremarkabl e. SOFT TISSUE: Normal. IMPRESSION: No acute fracture or dislocation. DATA REPOSITORY: RADIATION DOSE DELIVERED:
[2023-10-12] MEDS: Lidocaine 5% Patch 1 PATCH TP (21:27)
[2023-10-12] MEDS: Ketorolac 15 MG/ML VIAL IM (21:27)
[2023-10-12] MEDS: LORazepam 0.5 MG TAB PO (21:28)
--- NOTE | 2023-10-12 21:39 | ED.GENADUL_ITS ---
HPI General Stated Complaint: Orthopedic RAFA: 3 Date/Time Provider Initiated Documentation: 10/12/23 20:51. HPI Narrative: 88-year-old female history of remote lumbar spinal fusion presents with right leg discomfort rating down posterior leg worse with motion. Denies trauma denies fever chills nausea vomiting. Denies bowel or bladder incontinence. Denies falls. Related Data Home Medications Medication Instructions Recorded Confirmed ezetimibe 10 mg tablet (Zetia) 1 tab PO DAILY 07/21/15 10/12/23 [id number]-sej-[id number] acid 0.4 1 tab PO DAILY 07/21/15 10/12/23 mg-lycopene 300 mcg-lutein 250 mcg tablet (Centrum Silver) insulin detemir U-100 100 unit/mL 14 unit subcut QPM 07/16/18 10/12/23 subcutaneous solution (Levemir U-100 Insulin) cholecalciferol (vitamin D3) 50 50 mcg PO DAILY 01/14/22 10/12/23 mcg (2,000 unit) capsule insulin lispro 100 unit/mL 1 sliding scale dose subcut 11/01/22 10/12/23 subcutaneous pen (Humalog KwikPen USEASDIRECTD (U-100) Insulin) loperamide 2 mg capsule (Imodium 2 mg PO BID PRN 11/01/22 10/12/23 A-D) metoprolol tartrate 25 mg tablet 12.5 mg PO BID 11/01/22 10/12/23 apixaban 5 mg tablet (Eliquis) 5 mg PO BID 11/07/22 10/12/23 valsartan 40 mg tablet (Diovan) 40 mg PO DAILY 05/17/23 10/12/23 lidocaine 5 % topical patch 1 patch topical DAILY PRN #15 ea 10/12/23 (Lidoderm) Previous Rx's Medication Instructions Recorded lidocaine 5 % topical patch 1 patch topical DAILY PRN #15 ea 10/12/23 (Lidoderm) Allergies Allergy/AdvReac Type Severity Reaction Status Date / Time dexamethasone [From Decadron] Allergy Severe Verified 10/12/23 20:55 Sulfa (Sulfonamide Allergy Severe Tongue Verified 10/12/23 20:55 Antibiotics) Swells lovastatin Allergy Intermediate Verified 10/12/23 20:55 amitriptyline Allergy Verified 06/28/23 10:32 lisinopril Allergy Verified 06/28/23 10:32 troglitazone Allergy Verified 10/12/23 20:55 dipyridamole [From Aggrenox] AdvReac Intermediate Dizziness/Lightheade Verified 10/12/23 20:55 blurred vision metformin AdvReac Intermediate Diarrhea Verified 10/12/23 20:55 Steroids Allergy Severe Uncoded 10/12/23 20:55 Review of Systems Narrative: Review of Systems Constitutional: negative Eyes: negative ENT: negative Cardiovascular: negative Respiratory: negative Gastrointestinal: negative : negative Musculoskeletal: Leg pain Skin: negative Neurologic: negative Psych: negative PFSH All Active Problems (Updated 10/12/23 @ 23:14 by Marshall Dutton MD) Sciatica (Acute) Diabetes mellitus with peripheral angiopathy (Acute) Diabetes mellitus with neuropathy (Acute) Onychomycosis (Acute) Impacted cerumen, left ear (Acute) Retinopathy due to secondary diabetes mellitus (Acute) Spinal stenosis, lumbar (Acute) with DJD of lumbar Osteopenia (Acute) Anemia (Chronic) Polymyalgia rheumatica (Acute) Bilateral leg edema (Acute) Diastolic dysfunction (Acute) Atopic dermatitis (Acute) Mild memory disturbance (Acute) Diabetes mellitus (Chronic) Documented as T 1 and T 2 DM. 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) Sensorineural hearing loss, bilateral (Chronic 07/21/14) Frequent UTI (Acute 08/07/15) Conductive hearing loss, external ear (Acute 08/03/17) Atrophic vaginitis (Acute 08/06/13) Hypokalemia (Acute) Medical History Bilateral hearing loss Bronchitis DKA (diabetic ketoacidosis) CULVER (dyspnea on exertion) Elevated troponin Elevated TSH History of excessive cerumen Hypoglycemia Impacted cerumen, bilateral Keratosis obturans of right external ear canal (08/03/17) Migraine Otitis externa in other diseases classified elsewhere, bilateral Proteinuria Squamous cell carcinoma of head TIA (transient ischemic attack) Urinary tract infection Surgical History Bladder Surgery Repair H/O hernia repair H/O spinal fusion Laminectomy Repair of umbilical hernia Family History Father , 81 Hearing loss Mother , 102 Hearing loss Paternal Grandfather Diabetes Other Heart disease Hyperlipidemia Personal history of malignant neoplasm Social History Smoking/Tobacco Use Status: Never Smoking risk assessment performed?: Yes Alcohol Intake: current Alcohol Intake frequency: holidays/special occasions only Drug use: Never Substance use type: does not use Seatbelt use: always Do you feel safe at home: Yes Do you feel safe in your relationship?: Yes Female Reproductive History Menstrual Menopause type: natural History History 5 Para 5 Hx # Term Pregnancies 5 Multiple births Hx # Pregnancies Ectopic pregnancies AB induced Hx Number of Living Children AB spontaneous Exam Narrative Exam Narrative: Physical Examination General: alert, awake, cooperative, resting comfortably, no acute distress HEENT: normocephalic, atraumatic; PERRL, EOM intact, conjunctiva normal; no nasal discharge; moist mucous membranes, oral and pharyngeal mucosa normal, tolerating secretions Neck: supple, trachea midline; full ROM Chest: normal to inspection Respiratory: normal respiratory effort, speaking in full sentences GI: abdomen soft, non-tender, non-distended; no palpable mass or hepat osplenomegaly Skin: no lesions, rashes or trauma appreciated Neuro: AAOx3, normal speech, moving all extremities; out of 5 strength upper and lower extremities bilaterally, no ataxia; sensation intact bilaterally Extremities: Reproduction of symptoms with straight leg raise right lower extremity; no deformity no effusion, pelvis stable ambulatory from car Psych: Appropriate mood and affect Course Vital Signs Vital signs: Vital Signs Temperature 36.5 C 10/12/23 20:48 Pulse 81 10/12/23 20:48 Respiratory Rate 18 10/12/23 20:48 Pulse Oximetry 99 10/12/23 20:48 Temperature 36.5 C 10/12/23 20:48 Temperature Source Skin 10/12/23 20:48 Pulse 81 10/12/23 20:48 Respiratory Rate 18 10/12/23 20:48 Respiratory Effort Normal 10/12/23 20:53 Blood Pressure 171/66 H 10/12/23 20:56 Blood Pressure Position Sitting 10/12/23 20:48 Pulse Oximetry 99 10/12/23 20:48 Oxygen Delivery Method Room Air 10/12/23 20:48 Oxygen Flow Rate 0 10/12/23 20:48 Medical Decision Making 88-year-old female history of remote lumbar spinal fusion presents with atraumatic right lower extremity discomfort rating from gluteal region down back of leg, worse with movement, no bowel or bladder dysfunction, afebrile no midline spinal tenderness, no external signs of trauma no rash. Reproduction of symptoms with straight leg raise, 5-5 strength upper and lower extremities bilaterally, high clinical suspicion for sciatica lower suspicion for fracture or dislocation cauda equina infectious process spinal epidural abscess or CVA. Will provide trial of analgesia anti-inflammatory. Will perform screening x- rays of pelvis and femur. Ambulation trial to determine disposition 23: 13 range of motion of lower extremity greatly improved, patient is now ambul atory. Neurologically intact no acute distress. Likely resolving sciatica Quality:[facility] Health Related Social Needs: No Data to Display Discharge Plan Disposition Patient Disposition: Home Condition: Improving Discharge Details Clinical Impression: Sciatica Primary Care Provider: Jannie Harvey V ED Provider: Marshall Dutton Home Meds and New Rx's Prescriptions: New lidocaine [Lidoderm] 5 % adhesive patch,medicated 1 patch topical DAILY PRNQty: 15 0RF Rx Instructions: leave on most painful area for up to 12 hrs No Action Levemir U-100 Insulin 100 unit/mL solution 14 unit SC QPM loperamide [Imodium A-D] 2 mg capsule 2 mg PO BID PRN insulin lispro [Humalog KwikPen Insulin] 100 unit/mL insulin pen 1 sliding scale dose subcut USEASDIRECTD Rx Instructions: subcutaneously Q AC; per sliding scale (anticipated total daily dose of ~45units in 3-4 doses) valsartan [Diovan] 40 mg tablet 40 mg PO DAILY cholecalciferol (vitamin D3) 50 mcg (2,000 unit) capsule 50 mcg PO DAILY metoprolol tartrate 25 mg tablet 12.5 mg PO BID Eliquis 5 mg tablet 5 mg PO BID Centrum Silver 1 EACH tablet 1 tab PO DAILY ezetimibe [Zetia] 10 MG tablet 1 tab PO DAILY Discharge Instructions Instructions: Sciatica (ED) Additional Instructions: Please continue with acetaminophen and/or ibuprofen as needed for discomfort. Please return to the emergency department for any worsening symptoms.
--- NOTE | 2023-10-12 23:02 | DI.VRAD_ITS ---
PROCEDURE INFORMATION: Exam: XR Pelvis Exam date and time: 10/12/2023 10:09 PM Age: 88 years old Clinical indication: Other: Right lower ext pain, likely sciatica TECHNIQUE: Imaging protocol: Radiologic exam of the pelvis. Views: 1 or 2 view. COMPARISON: No relevant prior studies available. FINDINGS: Bones/joints: Unremarkable. No acute fracture. Soft tissues: Unremarkable. IMPRESSION: No acute findings. Dictated and Authenticated by: Alberto Alvarado MD. Ordering:JAMIA Olivares MD
--- NOTE | 2023-10-12 23:03 | DI.VRAD_ITS ---
PROCEDURE INFORMATION: Exam: XR Right Femur Exam date and time: 10/12/2023 10:10 PM Age: 88 years old Clinical indication: Other: Right lower ext pain, likely sciatica TECHNIQUE: Imaging protocol: Radiologic exam of the right femur. Views: 2 views. COMPARISON: CR XR PELVIS AP 10/12/2023 10:09 PM FINDINGS: Bones/joints: Unremarkable. No acute fracture. Soft tissues: Unremarkable. IMPRESSION: No acute findings. Dictated and Authenticated by: Alberto Alvarado MD. Ordering:JAMIA Olivares MD
== END 2023-10-12 23:39 | disposition home or self-care (01) ==
PROVIDERS: Emergency Provider Emergency Medicine; PCP Family Medicine
DX: M54.32 Sciatica, left side (principal); Z98.1 Arthrodesis status
CPT/HCPCS: 73552; 96372; 99284; 72170; 99283; J1885

== ENCOUNTER 2023-12-19 14:54 | Outpatient (REF) | payer MEDICARE, MEDICAID, SELFPAY ==
[2023-12-19 18:29] LABS: ESR 18 mm/hr (0-30); HCT 44.3 % (36.0-46.0); HGB 14.4 g/dL (11.2-15.7); MCH 29.6 pg (27.0-33.0); MCHC 32.5 % (32.0-36.0); MCV 91 fL (80-95); MPV 10.8 fL (8.0-11.0); Platelet Count 234 10^3/uL (130-400); RBC 4.86 10^6/uL (3.93-5.22); RDW 14.6 % (11.7-14.6); RDW-SD 49.4 fL; WBC 7.43 10^3/uL (4.4-10.8)
[2023-12-19 18:54] LABS: Hemoglobin A1C 7.7 % (<5.7)
[2023-12-19 18:55] LABS: ALT 24 U/L (14-59); AST 23 U/L (15-37); Albumin 3.4 g/dL (3.4-5.0); Alkaline Phosphatase 103 U/L (46-116); BUN 27 mg/dL (7-18); Bilirubin, Total 0.5 mg/dL (0.2-1.0); CREATININE 0.9 mg/dL (0.55-1.02); Calcium 9.6 mg/dL (8.5-10.1); Chloride 106 mmol/L (98-107); Estimated GFR 62.26 (mL/min/1.73m2); Glucose 94 mg/dL (74-106); Potassium 3.9 mmol/L (3.5-5.1); Sodium 142 mmol/L (136-145); Total Protein 6.8 g/dL (6.4-8.2)
== END 2023-12-19 14:55 | disposition home or self-care (01) ==
LOC: NCHCN 14:54
PROVIDERS: PCP Family Medicine; Visit Provider Family Medicine
DX: E11.9 Type 2 diabetes mellitus without complications (principal); M35.3 Polymyalgia rheumatica; R19.7 Diarrhea, unspecified
CPT/HCPCS: 80053; 85027; 85652; 83036; 86140

== ENCOUNTER → 2024-05-15 13:18 | Outpatient (BNVA) | payer MEDICARE, MEDICAID, SELFPAY | PROVIDERS: PCP Family Medicine; Referring Provider Family Medicine; Visit Provider Podiatrist | DX: E11.40 Type 2 diabetes mellitus with diabetic neuropathy, unspecified (principal); E11.51 Type 2 diabetes mellitus with diabetic peripheral angiopathy without gangrene; Z79.4 Long term (current) use of insulin; B35.1 Tinea unguium; L60.3 Nail dystrophy; R60.0 Localized edema | CPT/HCPCS: 11719; 11720 ==

== ENCOUNTER 2024-06-25 22:09 | Outpatient (REF) | payer MEDICARE, MEDICAID, SELFPAY ==
[2024-06-25 16:14] LABS: ESR 25 mm/hr (0-30)
[2024-06-25 17:04] LABS: ALT 17 U/L (14-59); AST 20 U/L (15-37); Albumin 3.2 g/dL (3.4-5.0); Alkaline Phosphatase 103 U/L (46-116); Anion Gap 7.1 mmol/L (3-11); BUN 18 mg/dL (7-18); Bilirubin, Total 0.55 mg/dL (0.2-1.0); C-Reactive Protein 1.27 mg/dL (<or=0.5); CO2 26.9 mmol/L (21.0-32.0); CREATININE 0.8 mg/dL (0.55-1.02); Calcium 9.8 mg/dL (8.5-10.1); Chloride 103 mmol/L (98-107); Estimated GFR 71.71 (mL/min/1.73m2); Glucose 145 mg/dL (74-106); Potassium 4.1 mmol/L (3.5-5.1); Sodium 137 mmol/L (136-145); Total Protein 6.3 g/dL (6.4-8.2)
== END 2024-06-25 22:10 | disposition home or self-care (01) ==
LOC: NCHCN 22:09
PROVIDERS: PCP Family Medicine; Visit Provider Family Medicine
DX: M35.3 Polymyalgia rheumatica (principal)
CPT/HCPCS: 80053; 85652; 86140

== ENCOUNTER → 2024-08-29 12:35 | Outpatient (BNVA) | payer MEDICARE, MEDICAID, SELFPAY | PROVIDERS: PCP Family Medicine; Referring Provider Family Medicine; Visit Provider Surgery | DX: R15.9 Full incontinence of feces (principal); K62.89 Other specified diseases of anus and rectum; R32 Unspecified urinary incontinence; E11.9 Type 2 diabetes mellitus without complications | CPT/HCPCS: 99215 ==

== ENCOUNTER → 2024-09-11 13:46 | Outpatient (BNVA) | payer MEDICARE, MEDICAID, SELFPAY | PROVIDERS: PCP Family Medicine; Referring Provider Family Medicine; Visit Provider Podiatrist | DX: E11.40 Type 2 diabetes mellitus with diabetic neuropathy, unspecified (principal); R60.0 Localized edema; E11.51 Type 2 diabetes mellitus with diabetic peripheral angiopathy without gangrene; L60.3 Nail dystrophy; B35.1 Tinea unguium; M79.674 Pain in right toe(s); M79.675 Pain in left toe(s) | CPT/HCPCS: 11719; 11720 ==

== ENCOUNTER → 2024-10-31 12:48 | Outpatient (BNVA) | payer MEDICARE, MEDICAID, SELFPAY | PROVIDERS: PCP Family Medicine; Referring Provider Family Medicine; Visit Provider Surgery | DX: R15.9 Full incontinence of feces (principal); R32 Unspecified urinary incontinence; N39.0 Urinary tract infection, site not specified; N95.2 Postmenopausal atrophic vaginitis; N81.89 Other female genital prolapse; K64.4 Residual hemorrhoidal skin tags; Z79.01 Long term (current) use of anticoagulants; E11.9 Type 2 diabetes mellitus without complications; I10 Essential (primary) hypertension | CPT/HCPCS: 99214 ==

== ENCOUNTER → 2025-01-15 13:22 | Outpatient (BNVA) | payer MEDICARE, MEDICAID, SELFPAY | PROVIDERS: PCP Family Medicine; Referring Provider Family Medicine; Visit Provider Podiatrist | DX: E11.40 Type 2 diabetes mellitus with diabetic neuropathy, unspecified (principal); E11.51 Type 2 diabetes mellitus with diabetic peripheral angiopathy without gangrene; R60.0 Localized edema; L60.3 Nail dystrophy; B35.1 Tinea unguium; R09.89 Other specified symptoms and signs involving the circulatory and respiratory systems; L65.9 Nonscarring hair loss, unspecified; R20.8 Other disturbances of skin sensation; R23.8 Other skin changes; L60.8 Other nail disorders; L60.2 Onychogryphosis | CPT/HCPCS: 11719; 11720 ==

== ENCOUNTER 2025-04-03 14:52 | Emergency (ER) | payer MEDICARE, MEDICAID, SELFPAY ==
[2025-04-03] VITALS (29 sets, daily range): BP systolic 150–213; BP diastolic 54–116; PULSE 60–81; RESP 11–28; TEMP 35.9; O2SAT 97–100
--- NOTE | 2025-04-03 15:00 | RT.EKG_ITS ---
APPROVED REPORT Exam: Resting ECG Reason for Exam: dizzy Patient Location: E HR:68 bpm ECG Measurements Heart Rate 68 AXIS ID [id number] P [id number] QRSd 104 QRS -11 QT 474 T 35 QTc 505 Conclusion Atrial fibrillation 68 normal axis no stemi
[2025-04-03 15:54] LABS: Abs Immature Grans 0.03 10^3/uL (0.0-0.06); Absolute Basophil Count 0.04 10^3/uL (0.0-0.2); Absolute Eosinophil Count 0.05 10^3/uL (0.0-0.7); Absolute Monocyte Count 0.52 10^3/uL (0.1-0.8); Absolute Neutrophil Count 7.14 10^3/uL (1.2-6.7); Basophils % 0.5 %; Eosinophils % 0.6 %; HGB 14.1 g/dL (11.2-15.7); Immature Grans % 0.3 %; Lymphocytes % 11.4 %; MCH 28.6 pg (27.0-33.0); MCHC 32.8 % (32.0-36.0); MCV 87 fL (80-95); MPV 10.8 fL (8.0-11.0); Monocytes % 5.9 %; Neutrophils % 81.3 %; Platelet Count 203 10^3/uL (130-400); RBC 4.93 10^6/uL (3.93-5.22); RDW 14.4 % (11.7-14.6); RDW-SD 46.2 fL; WBC 8.78 10^3/uL (4.4-10.8)
[2025-04-03 16:37] LABS: ALT 20 U/L (14-59); AST 28 U/L (15-37); Albumin 3.5 g/dL (3.4-5.0); Alkaline Phosphatase 95 U/L (46-116); Anion Gap 11.5 mmol/L (3-11); BUN 16 mg/dL (7-18); Bilirubin, Total 0.9 mg/dL (0.2-1.0); CO2 24.5 mmol/L (21.0-32.0); CREATININE 0.7 mg/dL (0.55-1.02); Calcium 9.3 mg/dL (8.5-10.1); Chloride 104 mmol/L (98-107); Estimated GFR 83.65 (mL/min/1.73m2); Glucose 194 mg/dL (74-106); Magnesium 1.7 mg/dL (1.8-2.4); Potassium 3.8 mmol/L (3.5-5.1); Sodium 140 mmol/L (136-145); Total Protein 6.8 g/dL (6.4-8.2); Troponin I 7 ng/L (<or=51)
[2025-04-03 16:59] LABS: Bilirubin Negative (Negative); Blood Negative (Negative); Clarity Clear (Clear); Glucose 500 mg/dL (Negative); Ketones 15 mg/dL (Negative); Leukocyte Esterase Negative (Negative); Nitrite Negative (Negative); Urobilinogen 0.2 mg/dL (Up to 0.2)
[2025-04-03 17:50] LABS: Troponin I 8 ng/L (<or=51)
--- NOTE | 2025-04-03 19:50 | W.ED.GENAD ---
Discharge Plan Disposition Patient Disposition: Home Condition: Stable Discharge Details Clinical Impression: Hypoglycemia Primary Care Provider: Jannie Harvey V ED Provider: Meng Tamayo Home Meds and New Rx's Prescriptions: No Action Levemir U-100 Insulin 100 unit/mL solution 14 unit SC .Q7pm famotidine 20 mg tablet 20 mg PO DAILY Centrum Silver Women 8 mg iron-400 mcg-50 mcg tablet 1 tab PO DAILY ketoconazole 2 % cream 1 applic topical DAILY Qty: 30 4RF Rx Instructions: Apply 1gram to toenails of both feet. Apply Urea 40% at opposite time of day. psyllium husk [Fiber (psyllium husk)] 0.4 gram capsule 0.4 g PO DAILY Qty: 30 12RF insulin lispro [Humalog KwikPen Insulin] 100 unit/mL insulin pen 1 sliding scale dose subcut USEASDIRECTD Rx Instructions: subcutaneously Q AC; per sliding scale (anticipated total daily dose of ~45units in 3-4 doses) valsartan [Diovan] 40 mg tablet 40 mg PO DAILY acetaminophen [Tylenol] 325 mg capsule 325 mg PO DAILY PRN ibuprofen [Advil] 200 mg tablet 200 mg PO Q6H PRN cholecalciferol (vitamin D3) 50 mcg (2,000 unit) capsule 50 mcg PO DAILY metoprolol tartrate 25 mg tablet 12.5 mg PO BID Eliquis 5 mg tablet 5 mg PO BID loperamide [Imodium A-D] 2 mg capsule 2 mg PO BID PRN ezetimibe [Zetia] 10 MG tablet 1 tab PO DAILY lidocaine [Lidoderm] 5 % adhesive patch,medicated 1 patch topical DAILY PRNQty: 15 0RF Rx Instructions: leave on most painful area for up to 12 hrs Discharge Instructions Instructions: Low Blood Sugar, Adult ED Additional Instructions: Make sure that you are eating full meals after you get your self insulin. And keep a log of your blood sugar. Please follow-up with your PCP if you have persistent drops in your blood sugar or for any other symptoms of concern. Return to the emergency department [facility] General Date/Time Provider Initiated Documentation: 04/03/25 15:10. Limitations to Documentation: no limitations. Information obtained by: patient. HPI Narrative: 89-year-old female with past medical history of diabetes, hypertension, memory impairment presents for evaluation of altered behavioral status. She reports that this morning she was not feeling very well at all. She states that the pharmacy delivery came to bring her medicines and he called the paramedics for her. EMS reports that on their arrival her blood sugar was 60, she was given some glucose eventually her blood sugar did come up. She states that she did give herself her insulin this morning, she did check her blood sugar before she gave herself insulin but she does not remember what the number was. She states that then she only ate half of a banana and half of an Yi muffin. She denies any chest pain, shortness of breath, nausea or vomiting. Related Data Home Medications ?Medication ?Instructions ?Recorded ?Confirmed ezetimibe 10 mg tablet (Zetia) 1 tab PO DAILY 07/21/15 04/03/25 cholecalciferol (vitamin D3) 50 50 mcg PO DAILY 01/14/22 04/03/25 mcg (2,000 unit) capsule insulin lispro 100 unit/mL 1 sliding scale dose subcut 11/01/22 04/03/25 subcutaneous pen (Humalog KwikPen USEASDIRECTD (U-100) Insulin) metoprolol tartrate 25 mg tablet 12.5 mg PO BID 11/01/22 04/03/25 apixaban 5 mg tablet (Eliquis) 5 mg PO BID 11/07/22 04/03/25 valsartan 40 mg tablet (Diovan) 40 mg PO DAILY 05/17/23 04/03/25 lidocaine 5 % topical patch 1 patch topical DAILY PRN #15 ea 10/12/23 01/30/25 (Lidoderm) acetaminophen 325 mg capsule 325 mg PO DAILY PRN 10/20/23 04/03/25 (Tylenol) ibuprofen 200 mg tablet (Advil) 200 mg PO Q6H PRN 10/20/23 04/03/25 famotidine 20 mg tablet 20 mg PO DAILY 05/14/24 04/03/25 [id number] 8 mg-folic 400 1 tab PO DAILY 05/14/24 04/03/25 mcg-K 50 mcg-lutein 300 mcg tablet (Centrum Silver Women) insulin detemir U-100 100 unit/mL 14 unit subcut .Q7pm 05/15/24 04/03/25 subcutaneous solution (Levemir U-100 Insulin) ketoconazole 2 % topical cream 1 applic topical DAILY 05/15/24 04/03/25 onychomycosis #30 grams loperamide 2 mg capsule (Imodium 2 mg PO BID PRN 08/16/24 04/03/25 A-D) psyllium husk 0.4 gram capsule 0.4 g PO DAILY #30 caps 08/29/24 04/03/25 (Fiber (psyllium husk)) Previous Rx's ?Medication ?Instructions ?Recorded lidocaine 5 % topical patch 1 patch topical DAILY PRN #15 ea 10/12/23 (Lidoderm) ketoconazole 2 % topical cream 1 applic topical DAILY 05/15/24 onychomycosis #30 grams psyllium husk 0.4 gram capsule 0.4 g PO DAILY #30 caps 08/29/24 (Fiber (psyllium husk)) Allergies Allergy/AdvReac Type Severity Reaction Status Date / Time dexamethasone (From Decadron) Allergy Severe Other (See Verified 04/03/25 16:20 Comment) Sulfa (Sulfonamide Allergy Severe Tongue Verified 04/03/25 16:20 Antibiotics) Swells troglitazone Allergy Severe Other (See Verified 04/03/25 16:20 Comment) amitriptyline Allergy Intermediate Other (See Verified 04/03/25 16:20 Comment) lovastatin Allergy Intermediate Other (See Verified 04/03/25 16:20 Comment) lisinopril Allergy Other (See Verified 04/03/25 16:20 Comment) dipyridamole (From Aggrenox) AdvReac Intermediate Dizziness/Lightheade Verified 04/03/25 16:20 blurred vision metformin AdvReac Intermediate Diarrhea Verified 04/03/25 16:20 Steroids Allergy Severe Other (See Uncoded 04/03/25 16:20 Comment) General Stated Complaint: Dizzy/Sync RAFA: 3 Exam Narrative Exam Narrative: Review of Systems: All systems reviewed & are unremarkable except as noted in HPI and below Well-developed, no acute distress NCAT PERRL, normal conjunctiva RRR Unlabored respiratory effort Nondistended abdomen , soft non tender Extremities w/o deformity, no cyanosis, no edema No rashes or lesions. no focal neurologic deficits, normal strength and sensation, normal gait Appropriate mood and affect Course Vital Signs Vital signs: Vital Signs Temperature 35.9 C L 04/03/25 14:56 Pulse 72 04/03/25 14:56 Respiratory Rate 16 04/03/25 14:56 Blood Pressure 150/116 H 04/03/25 14:56 Pulse Oximetry 99 04/03/25 14:56 Temperature 35.9 C L 04/03/25 14:56 Temperature Source Temporal Artery Scan 04/03/25 14:56 Pulse 60 04/03/25 19:03 Pulse 65 04/03/25 17:53 Respiratory Rate 18 04/03/25 19:03 Respiratory Effort Normal, Non-Labored 04/03/25 15:03 Respiratory Depth Normal 04/03/25 15:03 Respiratory Pattern Normal 04/03/25 15:03 Blood Pressure 178/76 H 04/03/25 19:03 Blood Pressure Mean 117 04/03/25 18:21 Blood Pressure Position Supine 04/03/25 14:56 Pulse Oximetry 99 04/03/25 19:03 Oxygen Delivery Method Room Air 04/03/25 14:56 Oxygen Flow Rate 0 04/03/25 14:56 Lab/Test Results Lab/Test Results: Laboratory Tests Range/Units 04/03/25 04/03/25 04/03/25 15:45 16:49 16:50 WBC (4.4-10.8) 10^3/uL 8.78 RBC (3.93-5.22) 10^6/uL 4.93 Hgb (11.2-15.7) g/dL 14.1 Hct (36.0-46.0) % 43.0 MCV (80-95) fL 87 MCH (27.0-33.0) pg 28.6 MCHC (32.0-36.0) % 32.8 RDW (11.7-14.6) % 14.4 Plt Count (130-400) 10^3/uL 203 MPV (8.0-11.0) fL 10.8 Immature Gran % % 0.3 Neutrophils % % 81.3 Lymphocytes % % 11.4 Monocytes % % 5.9 Eosinophils % % 0.6 Basophils % % 0.5 Nucleated RBC % (0.0-0.3) % 0.0 Absolute Neutrophils (1.2-6.7) 10^3/uL 7.14 H Absolute Lymphocytes (1.2-3.4) 10^3/uL 1.00 L Absolute Monocytes (0.1-0.8) 10^3/uL 0.52 Absolute Eosinophils (0.0-0.7) 10^3/uL 0.05 Absolute Basophils (0.0-0.2) 10^3/uL 0.04 Sodium (136-145) mmol/L 140 Potassium (3.5-5.1) mmol/L 3.8 Chloride (98-107) mmol/L 104 Carbon Dioxide (21.0-32.0) mmol/L 24.5 Anion Gap (3-11) mmol/L 11.5 H BUN (7-18) mg/dL 16 Creatinine (0.55-1.02) mg/dL 0.7 Est GFR (CKD-EPI 2020) (mL/min/1.73m2) 83.65 Glucose (74-106) mg/dL 194 H Calcium (8.5-10.1) mg/dL 9.3 Magnesium (1.8-2.4) mg/dL 1.7 L Total Bilirubin (0.2-1.0) mg/dL 0.9 AST (15-37) U/L 28 ALT (14-59) U/L 20 Alkaline Phosphatase (46-116) U/L 95 Troponin I (<or=51) ng/L 7 Cancelled Total Protein (6.4-8.2) g/dL 6.8 Albumin (3.4-5.0) g/dL 3.5 TSH (0.36-3.74) uIU/mL 3.70 Urine Color (Yellow) Yellow Urine Clarity (Clear) Clear Urine pH (5-8) 6.0 Ur Specific [place] (1.005-1.025) 1.010 Urine Protein (Neg-Trace) mg/dL Negative Urine Ketones (Negative) mg/dL 15 H Urine Blood (Negative) Negative Urine Nitrite (Negative) Negative Urine Bilirubin (Negative) Negative Urine Urobilinogen (Up to 0.2) mg/dL 0.2 Ur Leukocyte Esterase (Negative) Negative Urine Glucose (Negative) mg/dL 500 H Range/Units 04/03/25 04/03/25 17:26 18:10 WBC (4.4-10.8) 10^3/uL RBC (3.93-5.22) 10^6/uL Hgb (11.2-15.7) g/dL Hct (36.0-46.0) % MCV (80-95) fL MCH (27.0-33.0) pg MCHC (32.0-36.0) % RDW (11.7-14.6) % Plt Count (130-400) 10^3/uL MPV (8.0-11.0) fL Immature Gran % % Neutrophils % % Lymphocytes % % Monocytes % % Eosinophils % % Basophils % % Nucleated RBC % (0.0-0.3) % Absolute Neutrophils (1.2-6.7) 10^3/uL Absolute Lymphocytes (1.2-3.4) 10^3/uL Absolute Monocytes (0.1-0.8) 10^3/uL Absolute Eosinophils (0.0-0.7) 10^3/uL Absolute Basophils (0.0-0.2) 10^3/uL Sodium (136-145) mmol/L Potassium (3.5-5.1) mmol/L Chloride (98-107) mmol/L Carbon Dioxide (21.0-32.0) mmol/L Anion Gap (3-11) mmol/L BUN (7-18) mg/dL Creatinine (0.55-1.02) mg/dL Est GFR (CKD-EPI 2020) (mL/min/1.73m2) Glucose (74-106) mg/dL Calcium (8.5-10.1) mg/dL Magnesium (1.8-2.4) mg/dL Total Bilirubin (0.2-1.0) mg/dL AST (15-37) U/L ALT (14-59) U/L Alkaline Phosphatase (46-116) U/L Troponin I (<or=51) ng/L 8 Cancelled Total Protein (6.4-8.2) g/dL Albumin (3.4-5.0) g/dL TSH (0.36-3.74) uIU/mL Urine Color (Yellow) Urine Clarity (Clear) Urine pH (5-8) Ur Specific [place] (1.005-1.025) Urine Protein (Neg-Trace) mg/dL Urine Ketones (Negative) mg/dL Urine Blood (Negative) Urine Nitrite (Negative) Urine Bilirubin (Negative) Urine Urobilinogen (Up to 0.2) mg/dL Ur Leukocyte Esterase (Negative) Urine Glucose (Negative) mg/dL Medical Decision Making Emergent evaluation of altered mental status in the setting of hypoglycemia. Patient is not on any oral antibiotic hypoglycemic medications. She is on insulin but does not remember what her blood sugar was this morning or how much insulin she gave herself. It does not sound like she ate very much food prior to being found hypoglycemic by EMS. She is feeling much better now. Lab work was obtained. There is no leukocytosis or anemia. No electrolyte derangement. Glucose close rest, up to normal levels. She does not have any signs of urinary tract infection. Her EKG and cardiac enzymes are unremarkable and I do not suspect a cardiopulmonary etiology of her symptoms this morning. She was ambulated around the emergency department without any difficulty. I suspect that her symptoms earlier today are secondary to hypoglycemia and I recommend that she closely monitor her blood sugar prior to giving insulin dose. If her blood sugar has been running Low, she may need adjustment in her insulin dosing which can be done through her PCP office. 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) Irritable bowel syndrome (Chronic) Incontinence of feces (Acute) Rotator cuff syndrome (Acute) History of squamous cell carcinoma of skin (Acute) Skin lesion (Acute) Diabetes mellitus with peripheral angiopathy (Acute) Diabetes mellitus with neuropathy (Acute) Onychomycosis (Acute) Impacted cerumen, left ear (Acute) Retinopathy due to secondary diabetes mellitus (Acute) Spinal stenosis, lumbar (Acute) with DJD of lumbar Osteopenia (Acute) Anemia (Chronic) Polymyalgia rheumatica (Acute) Bilateral leg edema (Acute) Diastolic dysfunction (Acute) Atopic dermatitis (Acute) Mild memory disturbance (Acute) Diabetes mellitus (Chronic) Documented as T 1 and T 2 DM. 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) Sensorineural hearing loss, bilateral (Chronic 07/21/14) Frequent UTI (Acute 08/07/15) Conductive hearing loss, external ear (Acute 08/03/17) Atrophic vaginitis (Acute 08/06/13) Hypokalemia (Acute) Medical History Localized edema Hemorrhage of rectum and anus Malignant tumor of head and neck History of otitis externa Proteinuria DKA (diabetic ketoacidosis) History of excessive cerumen TIA (transient ischemic attack) Elevated troponin Hypoglycemia CULVER (dyspnea on exertion) Elevated TSH Squamous cell carcinoma of head Urinary tract infection Impacted cerumen, bilateral Bronchitis Bilateral hearing loss Otitis externa in other diseases classified elsewhere, bilateral Keratosis obturans of right external ear canal (08/03/17) Migraine Surgical History History of colonoscopy 2010, 2013 H/O spinal fusion H/O hernia repair Laminectomy Repair of umbilical hernia Bladder Surgery Repair Family History Father , 81 Hearing loss Mother , 102 Hearing loss Paternal Grandfather Diabetes Other Heart disease Hyperlipidemia Personal history of malignant neoplasm Social History Smoking/Tobacco Use Status: Never Smoking risk assessment performed?: Yes Alcohol Intake: current Alcohol Intake frequency: holidays/special occasions only Alcohol type: hard liquor Drug use: Never Substance use type: does not use Seatbelt use: always Do you feel safe at home: Yes Do you feel safe in your relationship?: Yes Female Reproductive History Menstrual Menopause type: natural History History 5 Para 5 Hx # Term Pregnancies 5 Multiple births Hx # Pregnancies Ectopic pregnancies AB induced Hx Number of Living Children AB spontaneous PAWSS Have you Been Recently Intoxicated or Drunk Within the Last 30 days?: No Have you Ever Experienced Previous Episodes of Alcohol Withdrawal?: No Have you ever Experienced Withdrawal Seizures?: No Have you ever Experienced Delirium Tremens(DT)s?: No Have you ever undergone Alcohol Rehabilitation Treatment (i.e, inpt ot outpatient treatment programs)?: No Have you ever Experienced Blackouts?: No Have you ever Combined Alcohol with other Downers within the last 90 days?: No Have you ever Combined Alcohol with any other Substance of Abuse during the last 90 days?: No Positive Blood Alcohol level on Presentation? [PCS.BAL]: No Evidence of Increased Autonomic Activity (i.e. HR>120, tremor, sweating, agitation, nausea)?: No Result: 0
== END 2025-04-03 19:03 | disposition home or self-care (01) ==
PROVIDERS: Emergency Provider Emergency Medicine; PCP Family Medicine
DX: E11.649 Type 2 diabetes mellitus with hypoglycemia without coma (principal); I48.91 Unspecified atrial fibrillation; I10 Essential (primary) hypertension; E78.5 Hyperlipidemia, unspecified; Z79.4 Long term (current) use of insulin; Z79.01 Long term (current) use of anticoagulants; Z98.1 Arthrodesis status; Z86.73 Personal history of transient ischemic attack (TIA), and cerebral infarction without residual deficits
CPT/HCPCS: 36415; 80053; 82962; 93005; 99284; 81003; 83735; 84443; 84484; 85025; 93010

== ENCOUNTER 2025-04-04 11:30 | Outpatient (REF) | payer MEDICARE, MEDICAID, SELFPAY ==
[2025-03-28 20:09] LABS: ESR 15 mm/hr (0-30)
[2025-03-28 20:21] LABS: ALT 20 U/L (14-59); AST 18 U/L (15-37); Albumin 3.5 g/dL (3.4-5.0); Alkaline Phosphatase 126 U/L (46-116); Anion Gap 9.6 mmol/L (3-11); BUN 23 mg/dL (7-18); Bilirubin, Total 0.5 mg/dL (0.2-1.0); CO2 27.4 mmol/L (21.0-32.0); CREATININE 0.7 mg/dL (0.55-1.02); Calcium 9.3 mg/dL (8.5-10.1); Chloride 105 mmol/L (98-107); Estimated GFR 83.65 (mL/min/1.73m2); Glucose 113 mg/dL (74-106); Potassium 4.1 mmol/L (3.5-5.1); Sodium 142 mmol/L (136-145); Total Protein 6.4 g/dL (6.4-8.2)
[2025-03-28 20:24] LABS: Hemoglobin A1C 7.2 % (<5.7)
== END 2025-04-04 11:31 | disposition home or self-care (01) ==
LOC: NCHCN 11:30
PROVIDERS: PCP Family Medicine; Visit Provider Family Medicine
DX: E11.9 Type 2 diabetes mellitus without complications (principal); Z79.4 Long term (current) use of insulin; M35.3 Polymyalgia rheumatica; I10 Essential (primary) hypertension
CPT/HCPCS: 80053; 85652; 83036

== ENCOUNTER → 2025-05-20 13:09 | Outpatient (BNVA) | payer MEDICARE, MEDICAID, SELFPAY | PROVIDERS: PCP Family Medicine; Referring Provider Family Medicine; Visit Provider Podiatrist | DX: L60.3 Nail dystrophy (principal); E11.42 Type 2 diabetes mellitus with diabetic polyneuropathy; E11.51 Type 2 diabetes mellitus with diabetic peripheral angiopathy without gangrene; R60.0 Localized edema; B35.1 Tinea unguium; R09.89 Other specified symptoms and signs involving the circulatory and respiratory systems; L65.9 Nonscarring hair loss, unspecified; R20.8 Other disturbances of skin sensation; L60.8 Other nail disorders; L60.2 Onychogryphosis; R23.8 Other skin changes | CPT/HCPCS: 11719; 11720 ==

== ENCOUNTER → 2025-08-26 11:29 | Outpatient (BNVA) | payer MEDICARE, MEDICAID, SELFPAY | PROVIDERS: PCP Family Medicine; Referring Provider Family Medicine; Visit Provider Podiatrist | DX: L60.3 Nail dystrophy (principal); B35.1 Tinea unguium; E11.51 Type 2 diabetes mellitus with diabetic peripheral angiopathy without gangrene; E11.42 Type 2 diabetes mellitus with diabetic polyneuropathy; R60.0 Localized edema; R09.89 Other specified symptoms and signs involving the circulatory and respiratory systems; L65.9 Nonscarring hair loss, unspecified; R20.8 Other disturbances of skin sensation; R23.8 Other skin changes; R23.4 Changes in skin texture; L60.8 Other nail disorders; L60.2 Onychogryphosis | CPT/HCPCS: 11719; 11720 ==